=== PATIENT | female | born 1955 | race Caucasian/White ===

== ENCOUNTER 2023-06-24 11:39 | Outpatient (CLI) | payer MEDICARE, SELFPAY ==
--- NOTE | ~2023-06-24 | XR_ITS ---
EXAMINATION: XR abdomen/kub 1V DATE: 06/24/2023 12:14 INDICATION: Irritable bowel syndrome without diarrhea. TECHNIQUE: A supine view of the abdomen was obtained. COMPARISON: None. FINDINGS: There are no dilated loops of bowel. There is a small volume of stool in the colon. Calcifi cations in the pelvis are likely phleboliths. IMPRESSION: 1. Normal bowel gas pattern. Reviewed, dictated and finalized at location E.
[2023-06-24 19:29] LABS: Iron 160 ug/dL (37-170)
[2023-06-24 19:39] LABS: Percent Iron Saturation 43 % (20-50)
[2023-06-24 20:02] LABS: Vitamin D 25 Hydroxy 42.6 ng/mL
[2023-06-24 20:33] LABS: Hemoglobin A1C 5.5 % (<5.7)
== END 2023-06-24 11:40 | disposition home or self-care (01) ==
PROVIDERS: PCP Family Medicine; Visit Provider Family Medicine
DX: R73.09 Other abnormal glucose (principal); G25.81 Restless legs syndrome; R00.2 Palpitations; K58.9 Irritable bowel syndrome, unspecified
CPT/HCPCS: 36415; 74018; 82306; 82607; 83036; 83540; 83550

== ENCOUNTER 2023-06-26 14:07 | Outpatient (CLI) | payer MEDICARE, SELFPAY ==
[2023-07-05 19:23] LABS: Pancreatic Elastase, Stool >500 mcg/g
== END 2023-06-26 14:08 | disposition home or self-care (01) ==
LOC: ANHBWCLAB 14:09
PROVIDERS: PCP Family Medicine; Visit Provider Family Medicine
DX: Z00.00 Encounter for general adult medical examination without abnormal findings (principal); K58.9 Irritable bowel syndrome, unspecified; I10 Essential (primary) hypertension
CPT/HCPCS: 82653

== ENCOUNTER 2023-10-22 13:35 | Outpatient (CLI) | payer MEDICARE, SELFPAY ==
[2023-10-22 14:27] LABS: Influenza A QL RT-PCR Negative (Negative); Influenza B QL RT-PCR Negative (Negative); RSV RNA, RT-PCR Negative (Negative); SARS-CoV-2 RNA PCR Positive (Negative)
== END 2023-10-22 13:36 | disposition home or self-care (01) ==
LOC: ANHLAB 13:37
PROVIDERS: PCP Family Medicine; Visit Provider Family Medicine
DX: U07.1 COVID-19 (principal)
CPT/HCPCS: 87637

== ENCOUNTER 2024-01-23 08:04 | Day surgery (SDC) | payer MEDICARE, SELFPAY ==
[2023-10-25 11:30] VITALS: BMI 32.4
[2023-11-27 15:03] VITALS: BMI 31.1
[2023-12-23 08:18] VITALS: BMI 31.3
[2024-01-23 09:35] VITALS: BP 147/74; PULSE 58; RESP 18; TEMP 36.2; O2SAT 97; BMI 31.3
[2024-01-23] MEDS: LACTATED RINGERS 1,000 ML 150 ML IV CONT (09:48)
--- NOTE | 2024-01-23 09:48 | P.HP_ITS ---
History of Present Illness History of Present Illness Consent: Risks, benefits, and alternatives have been discussed and questions answered. Patient agrees to proceed with procedure. Chief complaint: Neoplasm screening Narrative: Chiquita Nino is a 68 year old female presents for screening colonoscopy. Patient reports having had a colon polyp 5 years ago at previous colonoscopy in [place]. Brother has had colon polyps. Patient reports that her own weight ap petite and bowel movements are normal. Patient denies abdominal pain. She has had no bleeding. Review of Systems Review of Systems: All systems reviewed & are unremarkable except as noted in HPI and below PMFSH Past Medical History Medical History (Updated 10/22/23 @ 13:20 by Enoch Tavares MD) URI (upper respiratory infection) Family History Family History Father History of kidney cancer Hypertension Mother Hypertension Sibling Hypertension Social History Social History Smoking status: Never smoker Alcohol intake: current Drinks per week: 10 Alcohol use details: social Substance use: never Substance use type: does not use Lack of Transportation: No Lack of Food: Never True Current Housing: I Have Housing Concerned About Future Housing: No Difficulty Paying Gas/Electric Bills: No Difficulty Paying for Meds: No Currently Unemployed: No Education: High School Diploma/GED Living arrangements: with family Occupation/Education: occupation Gender identity (if verbalized by the patient): Female Spiritual care concerns: No Meds Home Medications and Allergies Home Medications Medication Instructions Recorded Confirmed Type amlodipine 5 mg tablet 5 mg PO DAILY 06/13/23 01/23/24 History pravastatin 20 mg tablet 20 mg PO DAILY 06/13/23 01/23/24 History mecobalamin (vitamin B12) 2,500 2,500 mcg PO DAILY 01/23/24 01/23/24 History mcg chewable tablet Allergies Allergy/AdvReac Type Severity Reaction Status Date / Time No Known Allergies Allergy Verified 01/23/24 09:27 Vital Signs Vital Signs - 24 hr 01/23/24 09:35 Temperature 97.1 F L Pulse Rate 58 L Respiratory Rate 18 Blood Pressure 147/74 H Pulse Oximetry 97 Oxygen Delivery Room Air Exam Narrative: Physical exam reveals patent signs stable. HEENT exam is unremarkable. Patient is anicteric. Lungs are clear to auscultation and percussion. Heart is without murmur or extra sounds. Abdomen bowel sounds are present soft nontender with no organomegaly. Digital external rectal exam is normal. Assessment and Plan Assessment and plan (1) Colon cancer screening: Code(s): Z12.11 - Encounter for screening for malignant neoplasm of colon Status: Acute Assessment and Plan: Patient presents today for screening colonoscopy. Her brother has had colon polyps. She reports having had previous polyps insert type elsewhere 5 years ago. Further recommendations may be given after endoscopy.
--- NOTE | 2024-01-23 09:56 | P.PNAN_ITS ---
Anes - Initial Pre Proc Eval Procedure: Operation Date: 01/23/24 10:30 Proposed Procedures p Colonoscopy - Kamran Cunningham MD Date/Time: 01/23/24 09:56 Surgeon: Kamran Cunningham MD Pre Op Diagnosis: Neoplasm screening Patient Data Age: 68 Gender: F Height: 1.52 m Weight: 72.7 kg Last Vital Signs Temp 36.2 C L 01/23/24 09:35 Pulse 58 L 01/23/24 09:35 Resp 18 01/23/24 09:35 BP 147/74 H 01/23/24 09:35 Pulse Ox 97 01/23/24 09:35 O2 Del Method Room Air 01/23/24 09:35 Allergies Allergy/AdvReac Type Severity Reaction Status Date / Time No Known Allergies Allergy Verified 01/23/24 09:27 Home Medications Medication Instructions Recorded Confirmed Type amlodipine 5 mg tablet 5 mg PO DAILY 06/13/23 01/23/24 History pravastatin 20 mg tablet 20 mg PO DAILY 06/13/23 01/23/24 History mecobalamin (vitamin B12) 2,500 2,500 mcg PO DAILY 01/23/24 01/23/24 History mcg chewable tablet Patient hx anesthesia problems: none Family hx anesthesia problems: none Results Review: All pre-operative results and documents have been reviewed as part of the pre- operative evaluation. [facility] Past Medical History Medical History URI (upper respiratory infection) Family History Family History Father History of kidney cancer Hypertension Mother Hypertension Sibling Hypertension Social History Social History Smoking status: Never smoker Alcohol intake: current Drinks per week: 10 Alcohol use details: social Substance use: never Substance use type: does not use Lack of Transportation: No Lack of Food: Never True Current Housing: I Have Housing Concerned About Future Housing: No Difficulty Paying Gas/Electric Bills: No Difficulty Paying for Meds: No Currently Unemployed: No Education: High School Diploma/GED Living arrangements: with family Occupation/Education: occupation Gender identity (if verbalized by the patient): Female Spiritual care concerns: No Anes - Eval Final PreProcedure Day of Procedure 01/23/24 09:56 Patient weight: obese Heart: regular rate and rhythm Lungs: clear to auscultation Airway: Mallampati scale class II Neurological: alert and oriented Last oral intake: >/= 8 hours ASA classification: II Emergent: no Anesthetic plan: proceed Anesthesia type and monitoring: general GIVS and standard monitoring Results Review: All pre-operative results and documents have been reviewed as part of the pre- operative evaluation. Informed Consent: The patient's anesthetic plan and its attendant risks and benefits were discussed with the patient/family/POA. Questions were solicited and answers provided to the satisfaction of the patient/family/POA.
[2024-01-23 10:44] VITALS: BP 125/76; PULSE 61; RESP 14; O2SAT 97
[2024-01-23 10:54] VITALS: BP 117/71; PULSE 57; RESP 16; O2SAT 97
--- NOTE | 2024-01-23 10:56 | WPDANESPN ---
Anes - Prog Note Post-Op Date/Time: 01/23/24 10:56 Cardiovascular status: normal Respiratory status: normal Airway patency: baseline Mental status: baseline Post-Op hydration status: normal Vital Signs: Last Vital Signs Temp 36.2 C L 01/23/24 09:35 Pulse 57 L 01/23/24 10:54 Resp 16 01/23/24 10:54 BP 117/71 01/23/24 10:54 Pulse Ox 97 01/23/24 10:54 O2 Del Method Room Air 01/23/24 10:54 Pain Score (VAS): 0 I/O: Intake & Output 01/22/24 01/23/24 01/23/24 23:59 07:59 15:59 Intake Total 325 Balance 325 Patient Feedback: Patient satisfied with anesthetic care.
[2024-01-23 11:04] VITALS: BP 123/65; PULSE 57; RESP 16; O2SAT 100
== END 2024-01-23 11:11 | disposition home or self-care (01) ==
PROVIDERS: PCP Family Medicine; Visit Provider Internal Medicine Gastroenterology
PROC: 0DJD8ZZ Inspection of Lower Intestinal Tract, Via Natural or Artificial Opening Endoscopic (ICD-10-PCS; CPT 45378; principal; 2024-01-23 10:30)
DX: Z86.010 Personal history of colon polyps (principal); K57.30 Diverticulosis of large intestine without perforation or abscess without bleeding; K64.8 Other hemorrhoids
CPT/HCPCS: 45378

== ENCOUNTER 2025-01-07 14:02 | Outpatient (CLI) | payer MEDICARE, SELFPAY ==
--- NOTE | ~2025-01-07 | XR_ITS ---
3 VIEWS LUMBAR SPINE Ordering provider: Enoch Tavares MD History: . chronic lower back pain . Comparison: None. FINDINGS: VERTEBRAL BODIES: No visible fracture or subluxation. Degenerative changes of the spine. DISK SPACES: Narrowing of all the disc spaces. Facet joint disease at the level of L4-L5 and L5-S1. SOFT TISSUES: Normal. IMPRESSION: No acute osseous abnormality lumbar spine. Multilevel degenerative disc disease. Reviewed, dictated and finalized at location A.
--- OUTSIDE RECORDS SUMMARY | 2025-01-07 14:51 | XMS_ITS | Encounter Summary ---
Author Organization [facility] Healthcare Address [address] [place] [address] Care Team Providers Care Director Check Name Role Phone Karen Hough DO Primary Care Provider [phone] Lucho Delvalle MD Primary Care Provider [phone] Karen Hough DO Primary Care Provider [phone] Enoch Tavares MD Primary Care Provider [phone] Reason for Visit * Reason Onset Date Comments Scheduling Appointments 11/13/2021 Jeramye d dexa Encounter Details Date Type Department Care Team (Late st Contact Info) Description 11/13/2021 Telephone [facility] [address] [place] [address] Chiqui Salcido, Scheduling Appointments (Confirmed dexa ) Social History Tobacco Use Types Packs/Day Years Used Date Smoking Tobacco: Never Smokeless Tobacco: Never Alcohol Use Standard Drinks/Week Comments Yes 1 (1 standard drink = 0.6 oz pur e alcohol) 6 drinks weekends only Overall Financial Resource Strain (CARDIA) Answe r Date Recorded How hard is it for you to pa y for the very basics like food, housing, medical care, and heating? Not very hard 09/27/2020 PHQ-2 Answer Date Recorded PHQ-2 Total Score (If total score is 3 or more points, staff should administer the PHQ-9) 0 10/19/2021 Hunger Vital Sign Answer Date Recorded Within the past 12 months, y ou worried that your food would run out before you got the money to buy more. Never true 09/27/19 21 Within the past 12 months, t he food you bought just didn't last and you didn't have money to get more. Never true 09/27/2020 PRAPARE - Transportation Answer Date Re corded In the past 12 months, has l ack of transportation kept you from medical appointments or from getting medications? No 09/09 In the past 12 months, has l ack of transportation kept you from meetings, work, or from getting things needed for daily living? 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
--- OUTSIDE RECORDS SUMMARY | 2025-01-07 14:52 | XMS_ITS | Clinical Summary ---
Author Organization [facility] A Address [address] [place] [address] Care Team Providers Care Cardiovascular Tech Name Role Phone Enoch Tavares MD Primary Care Provider [phone] Allergies No known active allergies Medications ketoconazole (NIZORAL) 2 % shampoo 09/26/19 23 Active ciclopirox 1 % shampoo LATHER ON SCALP, LET SIT FOR 3-5 MINUTES, THEN RINSE WASH 3 TIMES A WEEK 01/17/20 23 Active fluocinolone (DERMA-SMOOTHE) 0.01 % external oil APPLY TO THE AFFECTED AREA ON THE SCALP TWICE A DAY 05/15/20 23 Active tretinoin (RETIN-A) 0.025 % cream APPLY A PEA SIZED AMOUNT TO THE FACE 3 NIGHTS PER WEEK, THEN INCREASE TO EVERY NIGHT TOLERATED 03/14/20 23 Active amLODIPine (NORVASC) 5 mg tabletIndications:Prima ry hypertension Take 1 tablet (5 mg total) by mouth nightly 90 tablet 3 05/22/20 23 Active pravastatin (PRAVACHOL) 20 mg tabletIndications:Pure hypercholesterolemia Take 1 tablet (20 mg total) by mouth nightly 90 tablet 3 05/22/20 23 Active Active Problems Problem Noted Date Diagnosed Date Bulging of lumbar intervertebral disc 02/07/2023 Assessment & Plan (02/07/2023 4:00 PM CDT): Chronic history of low back pain. Review previous MRI. Generalized abdominal pain 02/07/2023 Assessment & Plan (02/07/2023 4:00 PM CDT): X-rays ordered, labs ordered, will follow. For severe abdominal pain go to nearest emergency room for further evaluation and management. Acute bilateral low back pain without sciatica 0 02/07/2023 Assessment & Plan (02/07/2023 3:59 PM CDT): History of bulging disc, consider adding [id number] NSAID of choice. Use as directed on bottle. Herpes zoster without complication 02/07/2023 Assessment & Plan (02/07/2023 3:59 PM CDT): Prescription sent, may use ztib-pef-wlrxfrt anti-itch cream and/or antihistamines as needed for itching. Bacteria in urine 02/07/2023 Assessment & Plan (02/07/2023 3:58 PM CDT): Urine culture ordered. Primary hypertension 10/19/2021 Assessment & Plan (05/22/2023 8:06 PM CDT): Blood pressure at goal less than 140/90, continue current prescription medications, amlodipine. Assessment & Plan (10/25/2022 10:22 AM SPECIALTIES OPERATOR): Blood pressure at goal less than 140/90, d/c Maxzide. Continue amlodipine. Record daily bp measurements at home, send bp log in one week via [place]. Assessment & Plan (10/11/2022 11:24 AM SPECIALTIES OPERATOR): BP Readings from Last 3 Encounters: 10/11/22 102/68 04/23/22 108/72 10/19/21 102/68 Vitals BP 102/68 (BP Location: Left arm, Patient Position: Sitting) Pulse 75 Resp 18 Ht 155.7 cm (5' 1.3 ) Wt 73.5 kg (162 lb) LMP 09/09/2007 (Approximate) SpO2 96% BMI 30.31 kg/m Lab Results Component Value Date POTASSIUM 3.9 04/23/2022 bp at goal - would recommend decreasing her hctz at this time otherwise continue triamterene 37.5/25 hctz,norvac 5 and follow up with pcp Assessment & Plan (04/23/2022 9:03 AM CDT): Blood pressure at goal less than 140/90, continue current prescription medications. Assessment & Plan (10/19/2021 8:20 AM SPECIALTIES OPERATOR): Stable. Cont. Current prescription medications. Pure hypercholesterolemia 10/19/2021 Assessment & Plan (05/22/2023 8:07 PM CDT): LDL not at goal of < 100, low chol diet recommended. Consider a medication adjustment, once labs have been reviewed. Assessment & Plan (10/25/2022 10:22 AM SPECIALTIES OPERATOR): LDL near goal of < 100, continue pravastatin. Low chol diet recommended, labs ordered. Assessment & Plan (04/23/2022 9:02 AM CDT): LDL not yet at goal of less than 100. Low-cholesterol diet recommended. Labs ordered, will follow. Assessment & Plan (10/19/2021 8:20 AM SPECIALTIES OPERATOR): LDL not at goal of less than 100. Increase pravastatin 10 mg nightly up to 20 mg nightly. Low-cholesterol diet recommended. Gastroesophageal reflux disease without esophagi tis 10/19/2021 Assessment & Plan (04/23/2022 9:02 AM CDT): Stable. Cont. Current prescription medications. Assessment & Plan (10/19/2021 8:20 AM SPECIALTIES OPERATOR): Asymptomatic. Stable. Continue current prescription medications. Tinnitus of both ears 10/19/2021 Bilateral hearing loss 04/10/2021 Assessment & Plan (04/10/2021 4:31 PM CDT): Hearing test and Balance testing - [facility] A Few Causes of Ringing in Your Ears (Tinnitus) discussed and Handout provided Hx of colonic polyps 05/23/2018 Overview (05/23/2018): Added automatically from request for surgery [id number] Family hx colonic polyps 05/23/2018 Overview (05/23/2018): Added automatically from request for surgery [id number] Body mass index (BMI) of 29.0 to 29.9 in adult 1 Assessment & Plan (07/03/2017 11:39 AM CDT): Recommended patient to continue to increase heart healthy diet with adequate fruits, vegetables, and plenty of water along with mild-moderate daily exercise as tolerated. Lumbar disc disease with radiculopathy 7 Assessment & Plan (07/03/2017 11:39 AM CDT): Recommended continuing therapy exercises along with coordinating care with pain management for injections. Certainly the interim will do of we can for her pain alleviation. MRI did not indicate the need to see a spinal surgeon at this point time I did educate her that if conservative management is not effective, we can consider referral to spinal surgeon to see if there is any operative options. Considering asymptomatic since presentation in office today advised her to continue with which he is currently doing and we released her back to work as of Saturday. Abnormal ANCA test 05/17/2017 Neurosensory deficit 02/26/2017 Overview (10/19/2021): LLE IBS (irritable bowel syndrome) 01/10/2009 Assessment & Plan (02/07/2023 4:00 PM CDT): History of IBS, documented chart since 2008. Encouraged patient to follow-up with gastroenterology. Resolved Problems Problem Noted Date Diagnosed Date Resolved Date Near syncope 04/16/2022 10/25/2022 Dizziness and giddiness 04/10/2021 02/ Assessment & Plan (04/10/2021 1:32 PM CDT): Hearing test and Balance testing - [facility] Acute cystitis with hematuria 03/31/2019 03/31/2019 Assessment & Plan (03/31/2019 4:14 PM CDT): Clinical examination correlates with acute cystitis. Given recent antibiotic course of cephalexin, recommending Bactrim DS b.i.d. X7 days along with increasing fluids, cranberry pills or tablets, Pyridium for p.r.n. Use in the interim, OTC antipyretics, and supportive measures also encouraged in office. Will follow-up in regard to urine culture and sensitivity indicating need for changes in management. RTC p.r.n. Regarding condition. Tibial pain 03/23/2019 09/24/2019 Assessment & Plan (03/31/2019 4:13 PM CDT): Residual left tibial pain, likely secondary to MS injury (possibly to surrounding tendons) I did advised Pt to move forward with MRI of left tibia further evaluation given persistent pain and swelling. Further recommendations pending results of testing. Assessment & Plan (03/23/2019 4:39 PM CDT): Given x-ray and ultrasound were both negative, detailed above, with swelling and pain noted, DDx includes stress fracture of tibia verses tendon injury. MRI ordered to schedule next week upon returning back from [place] trip to look further into these abnormalities if in the event pain persist. Certainly she was advised also Cnt. With the cephalexin naproxen, weight/activity limitations, and bracing as prior advised. She was advised to call next week updating us on her condition was returning back from trip, further recommendations pending results of MRI if still indicated in 1wk Cellulitis of left leg 03/23/201903/31 Assessment & Plan (03/23/2019 4:35 PM CDT): Secondary to trauma. Mild improvment w/ Keflex with less redness, pain. Cnt. With cleansing precautions as prior noted.RTC next week over the phone once returning from [place]. Left leg pain 03/18/2019 09/24/2019 Assessment & Plan (03/18/2019 11:38 AM CDT): DDx include: tibial fracture or traumatic contusion, DVT, or cellulitis secondary to trauma. Recommending x-ray of left tibia, hold and call left LE duplex to rule out concerns of DVT, and further recommendations pending results of testing. I did advise her to F/U here in the office in 5 days for re-evaluation. If all testing negative, recommending RICE therapy, naproxen 500 mg q.8 hours, ice 20 minutes an hour, activity and weight-bearing restrictions. Will be addressed in office in 5 days to see if treatment for cellulitis is indicated with persistent pain, redness or warmth to touch Back pain 06/26/2017 09/24/2019 UTI (urinary tract infection) 02/26/2017 10/19/2021 Screening for condition 01/10/200910/10 Overview (10/19/2021): Adult Abstraction Problem List Screening Colonoscopy: Result: 04/13 Cholesterol 07/16 Immunizations Immunization Administration Dates Next Due DT 05/07/2005 Influenza, Quad, Adjuvantate d, Intramuscular 06/18/2022,06/12/2021,06/08/2020 Influenza, Quadrivalent, Spl it, Intramuscular 07/20/2015 Influenza, Quadrivalent, Spl it, Preservative Free, Intradermal 05/28/2016 Influenza, Quadrivalent, Spl it, Preservative Free, Intramuscular 07/03/2017 Influenza, Trivalent, Recomb inant, Egg Free, Preservative Free, Antibiotic Free, IM (FLUBLOK) 07/09/2014,07/09/2014 Influenza, Unspecified 06/21/2019,07/04/2018 Moderna SARS-CoV-2 Monovalen t Vaccination (12+ YRS) 11/15/2020,10/13/2020 Pneumococcal Conjugate Pcv20 04/23/2022 Pneumococcal Polysaccharide PPV23 08/13/2012 ZOSTER LIVE 07/20/2015,06/18/2015 ZOSTER Recombinant 09/26/2018,07/04/2018 Surgical History Surgery Date Site/Laterality Comments CARPAL TUNNEL RELEASE Carpal tunnel release OTHER SURGICAL HISTORY Menorrhagia: D&C COLONOSCOPY 09/28/2012 Medical History Medical History Date Comments Hx Other Medical Menorrhagia; Co mments: RED 11/15/2014 - Irritable bowel syndrome Family History Medical History Relation Name Comments Other Father Prakash Cancer, unknown primary; Cause of : Cancer, unknown primary Bone cancer Maternal Grandmother Cancer, bone; Cause of : Cancer, bone Hypertension Mother Sandra Hypertension; Other Other No family histo ry of breast cancer; Breast cancer Neg Hx Ovarian cancer Neg Hx Thyroid cancer Neg Hx Relation Name Status Comments Father Prakash (Age 82) Maternal Grandmother Mother Sandra Alive Other Social History Tobacco Use Types Packs/Day Years Used Date Smoking Tobacco: Never Smokeless Tobacco: Never Tobacco Cessation:Counseling Given: Not Answered Alcohol Use Standard Drinks/Week Comments Yes 1 [...] points, staff should administer the PHQ-9) 0 05/22/2023 Hunger Vital Sign Answer Date Recorded Within [...] on file Legal Sex Female 11:59 AM SPECIALTIES OPERATOR Gender Identity Not on file Sexual Orientation Not on file 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 Not on file Not on file Obstetrics History Para Term AB IAB SAB Ectopic Multiple Livin g Live Births 4 3 3 0 1 3 Date Outcome GA Total Labor Labor/2nd/3rd Weight Sex Type Anes PTL Julia A1 A5 Name Clin Term Term Term AB Last Filed Vital Signs Vital Sign Reading Time Taken Comments Blood Pressure 116/78 05/22/2023 12:40 PM CDT Pulse 60 05/22/2023 12:40 PM CDT Temperature 37.4 C (99.4 F) 05/22/2023 12:40 PM CDT Respiratory Rate 18 05/22/2023 12:4 0 PM CDT Oxygen Saturation 96% 05/22/2023 12: 40 PM CDT Inhaled Oxygen Concentration - - Weight 72.5 kg (159 lb 12.8 oz) 023 12:40 PM CDT Height 155.7 cm (5' 1.3 ) 05/22/2023 12 :40 PM CDT Body Mass Index 29.9 05/22/2023 12:40 PM CDT Plan of Treatment Health Maintenance Due Date Last Done Comments Hepatitis B Screening 1973 DTaP/Tdap/Td Vaccine (2 - Tdap) 05/07/2015 5 Breast Cancer Screening-Mammogram 05/24/2023 05/24/2022, 01/26/2021, 08/02/2018, Additional history exists Colon Cancer Screening-Colonoscopy 08/11/2023 08/11/2018, 10/06/2012 Well Visit 65+ 10/25/2023 10/25/2022, 10/10, 03/31/2021, Additional history exists Osteoporosis Screening-Bone Density Scan 11/15/2023 11/14/2021, 07/06/2017, 06/06/2017, Additional history exists Covid-19 Vaccine (2023-2 5 season) 2024 07/10/2021, 11/15/2020, 10/13/2020 Influenza Vaccine (#1) 2024 , 06/12/2021, 06/08/2020, Additional history exists Depression Screening 05/22/2024 05/22/2023, 02/07/2023, 10/25/2022, Additional history exists Fall Risk Assessment 05/22/2024 05/22/2023, 02/07/2023, 10/25/2022, Additional history exists Colon Cancer Screening-CT Colonography Discontinued 08/11/2018, 10/06/2012 Colon Cancer Screening-DNA Stool Discontinued 08/11/20 18, 10/06/2012 Colon Cancer Screening-FIT Discontinued 08/11/2018, Colon Cancer Screening-Sigmoidoscopy Discontinued 08/11/2018, 10/06/2012 Zoster Vaccine Completed 09/26/2018, 06/10, 07/20/2015, Additional history exists Hepatitis C Screening Completed 11/14/2021 Pneumococcal vaccine 65+ Completed 04/23/2022, 01/2012 Procedures Procedure Name Priority Date/Time Associated Diagnosis Comments SCREENING MAMMOGRAM BILATERAL W TED Schedule Routine, Read Routine (OP Routine) 05/24/2022 10:21 AM CDT Screening mammogram for breast cancer DEXA AXIAL SKELETON BONE DENSITY 1 OR MORE SITES Schedule Routine, Read Routine (OP Routine) 11/14/2021 11:36 AM SPECIALTIES OPERATOR Screening for osteoporosis Postmenopausal HEPATITIS C ANTIBODY Routine 11/14/2021 7:41 AM SPECIALTIES OPERATOR Encounter for hepatitis C screening test for low risk patient COLONOSCOPY 08/11/2018 9:26 AM SPECIALTIES OPERATOR from Last 3 Months or Most Recently Relevant to Health Maintenance Results * Screening Mammogram Bilateral W Ted (05/24/2022 10:21 AM CDT) Anatomical Region Laterality Modality Breast Bilateral Mammography 05/24/2022 1:28 PM CDT Impressions 05/24/2022 1:28 PM CDT There is no mammographic evidence of malignancy. A 1 year screening mammogram is recommended. BI-RADS: 1 - Negative. The patient has been or will be contacted. The patient will be entered into a reminder system with a target due date of 1 year for her next mammogram. Electronically signed by: Fran Nur M.D. Narrative 05/24/2022 1:28 PM CDT EXAMINATION: SCREENING MAMMOGRAM BILATERAL W TED ORDERING HEALTHCARE PROVIDER: SHAHAB FITZPATRICK HISTORY: Routine screening mammography. COMPARISON: 01/26/2021, 08/02/2018, 08/11/2016, 05/30/2015 TECHNIQUE: CC and MLO views of the bilateral breasts were obtained with digital technique using breast tomosynthesis with C view. Computer aided detection was utilized. FINDINGS: DENSITY: There are scattered fibroglandular elements in the bilateral breasts. BREASTS: There are no suspicious masses, suspicious calcifications, or other suspicious findings in either breast. There has been no suspicious interval change. us Shahab Luna Gianluca DO IMG MAMMO PROCEDURES Final Result * Dexa Axial Skeleton Bone Density 1 or 2 Site (11/14/2021 11:36 AM SPECIALTIES OPERATOR) Anatomical Region Laterality Modality Body N/A Other 11/14/2021 9:22 PM SPECIALTIES OPERATOR Narrative 11/14/2021 9:24 PM SPECIALTIES OPERATOR EXAM DESCRIPTION: DEXA AXIAL SKELETON BONE DENSITY 1 OR MORE SITES REASON FOR STUDY: 65 y/o year old F with given history of screening. Health Record Technician/Model: Tonara SL (S/N [id number]) CLINICAL INFORMATION: Current height: 60 inches Maximum height: 60 inches Weight: 158 pounds Risk factors: Postmenopausal COMPARISON: None available. FINDINGS: AP LUMBAR SPINE L1-L4: Total BMD is 0.924 g/cm2 T-score is -1.1 LEFT HIP: Total BMD is 0.876 g/cm2 T-score is -0.5 Femoral neck BMD is 0.703 g/cm2 T-score is -1.3 IMPRESSION: Based on the left femoral neck bone mineral density (T-score -1.3) the patient has low bone mass. Fracture risk assessment (FRAX): 10 year risk for a major osteoporotic fracture is 8.6 % 10 year risk for a hip fracture is 0.8 % The FRAX tool has not been validated in patients currently or previously treated with pharmacotherapy for osteoporosis. In such patients, clinical judgement must be exercised in interpreting FRAX scores as the fracture risk may be overestimated. REFERENCE: Bone mineral density: Normal (T-score above or = -1.0) Low bone mass (T-score between -1.0 and -2.5) replaces the previously used term osteopenia Osteoporosis (T-score = or below -2.5) Medical evaluation for secondary causes of low bone mineral density may be appropriate. FRAX is a World Health Organization validated fracture risk assessment tool that calculates a person's 10 year probability of a major osteoporosis related fracture and hip fracture. According to the National Osteoporosis Foundation guidelines, postmenopausal women and men age 50 or older with low bone mass and a 10 year probability of a major osteoporosis related fracture = or greater than 20% or a 10 year probability of a hip fracture = or greater than 3% should be considered for treatment. For further information, including treatment recommendations, please refer to the 2013 ISCD Official Positions (http://www.iscd.org) and the NOF's Clinician's Guide to Prevention and Treatment of Osteoporosis (http://www.nof.org/professionals/clinical-guidelines) THIS IS AN ELECTRONICALLY VERIFIED FINAL REPORT 11/14/2021 9:24 PM - Electronically signed by Rusty Staton M.D. MF: [email or web address] Report ID: [id number] Reading Location: [place] [address] Procedure Note Rusty Staton MD - 11/14/2021 EXAM DESCRIPTION: DEXA AXIAL SKELETON BONE DENSITY 1 OR MORE SITES REASON FOR STUDY: 65 y/o year old F with given history ofscreening. Health Record Technician/Model: Tonara SL (S/N [id number]) CLINICAL INFORMATION: Current height: 60 inches Maximum height: 60 inches Weight: 158 pounds Risk factors: Postmenopausal COMPARISON: None available. FINDINGS: AP LUMBAR SPINE L1-L4: Total BMD is 0.924 g/cm2 T-score is -1.1 LEFT HIP: Total BMD is 0.876 g/cm2 T-score is -0.5 Femoral neck BMD is 0.703 g/cm2 T-score is -1.3 IMPRESSION: Based on the left femoral neck bone mineral density (T-score -1.3) the patient has low bone mass. Fracture risk assessment (FRAX): 10 year risk for a major osteoporotic fracture is 8.6 % 10 year risk for a hip fracture is 0.8 % The FRAX tool has not been validated in patients currently or previously treated with pharmacotherapy for osteoporosis. In such patients, clinical judgement must be exercised in interpreting FRAX scores as the fracturerisk may be overestimated. REFERENCE: Bone mineral density: Normal (T-score above or = -1.0) Low bone mass (T-score between -1.0 and -2.5) replaces thepreviously used term osteopenia Osteoporosis (T-score = or below -2.5) Medical evaluation for secondary causes of low bone mineral density may be appropriate. FRAX is a World Health Organization validated fracture risk assessmenttool that calculates a person's 10 year probability of a major osteoporosisrelated fracture and hip fracture. According to the National OsteoporosisFoundation guidelines, postmenopausal women and men age 50 or older with low bonemass and a 10 year probability of a major osteoporosis related fracture = or greater than 20% or a 10 year probability of a hip fracture = or greaterthan 3% should be considered for treatment. For further information, including treatment recommendations, please referto the 2013 ISCD Official Positions (http://www.iscd.org) and the NOF's Clinician's Guide to Prevention and Treatment of Osteoporosis (http://www.nof.org/professionals/clinical-guidelines) THIS IS AN ELECTRONICALLY VERIFIED FINAL REPORT 11/14/2021 9:24 PM - Electronically signed by Rusty Staton M.D. MF: [email or web address] Report ID: [id number] Reading Location: [place] [address] us Shahab Fitzpatrick DO IMG DXA PROCEDURES Final R esult * Hepatitis C antibody (11/14/2021 7:41 AM SPECIALTIES OPERATOR) Pathologist [facility] Hep C Ab Nonreactive Nonreactive [facility] [facility] Comment: Interpretive Data Nonreactive: Antibodies to HCV not detected. Does NOT exclude the possibility of recent exposure to HCV. Equivocal: Equivocal for HCV antibodies. Supplemental molecular testing will be automatically performed to determine infection status in accordance with current CDC screening recommendations. Reactive: Positive for HCV antibodies. This may represent current or past HCV infection. Supplemental molecular testing will be automatically performed to determine current infection status in accordance with current CDC screening recommendations. Interpretive data was last revised on 2019. Testing performed by: [facility], [address] [place] [address], [place]., [address] Blood 11/14/2021 7:41 AM SPECIALTIES OPERATOR 11/14/2021 2:40 PM SPECIALTIES OPERATOR us Shahab Fitzpatrick DO LAB MICROBIOLOGY - GENERAL ORDERABLES Final Result [facility] [place] [address] [employer] [place] [address] * COLONOSCOPY (08/11/2018 9:26 AM SPECIALTIES OPERATOR) Anatomical Region Laterality Modality Other Narrative Procedure Note Tien Bonner MD - 08/11/2018 9:26 AM CST [facility] Patient Name: Chiquita Shell Procedure Date: 08/11/2018 9:26 AM Date of : 1955 Admit Type: Outpatient Age: 62 Gender: Female Attending MD: Tien Bonner M.D. Room: [facility] Note Status: Finalized Procedure: Colonoscopy Indications: High risk colon cancer surveillance: Personalhistory of colonic polyps, Last colonoscopy: September 2012 Referring MD: Lucho Delvalle MD Providers: Tien Bonner M.D. Impression: - Hemorrhoids found on perianal exam. - The entire examined colon is normal. - The entire examined colon is normal. - No specimens collected. Recommendation: - Discharge patient to home. - Resume previous diet. - Continue present medications. . - Repeat colonoscopy in 5 years for surveillance. - Return to primary care physician as previously scheduled. Medicines: Propofol per Anesthesia Complications: No immediate complications. Estimated Blood Loss: Estimated blood loss: none. Procedure: The benefits, risks and alternatives of theprocedure and sedation were discussed and informed consent was obtained. All questions were answered. Please referto the signed informed consent document in the medical record. The scope was passed under direct vision.The Colonoscope [id number] was introducedthrough the anus and advanced to the the cecum, identifiedby appendiceal orifice and ileocecal valve. The colonoscopy was performed without difficulty. The patient tolerated the procedure well. The quality of the bowel preparation was good. Findings: Hemorrhoids were found on perianal exam. The colon (entire examined portion) appeared normal. The colon (entire examined portion) appeared normal. Electronically signed by Tien Bonner M.D. Tien Bonner M.D. 08/11/2018 10:04:45 AM Number of Addenda: 0 Note Initiated On: 08/11/2018 9:26 AM Procedure Code(s): --- Professional --- G0105, Colorectal cancer screening; colonoscopy on individual at high risk Diagnosis Code(s): --- Professional --- K64.9, Unspecified hemorrhoids Z86.010, Personal history of colonic polyps CPT copyright 2017 [employer]. All rights reserved. The codes documented in this report are preliminary and upon fish peddler reviewmay be revised to meet current compliance requirements. 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
--- OUTSIDE RECORDS SUMMARY | 2025-01-07 14:52 | XMS_ITS | Clinical Summary ---
Author Organization [facility] Address [address] [place] [address] Care Team Providers Care Tailor Garment Fitter Name Role Phone Eli Sanches MD Unavailable Lucho Delvalle MD Primary Care Provider Unavail able Source Comments [facility],non-owned Affiliates and Associated Physician Practices is amultiple site organization consisting of ambulatory clinics and hospital sitesin [place], [place], [place] and [place]. This disclosure is being madepursuant to the Care Everywhere program and may not contain all information available regarding this patient. Last updated 18.[facility] Allergies No known active allergies Medications * Be aware that medications may not be up to date on this document. Alwaysverify current medications with the patient. zaleplon (SONATA) 10 MG capsuleIndicati ons:Insomnia Take 1 Cap by mouth nightly as needed for Insomnia. 30 Cap 0 3 Active Additional Information Patient not taking.Reported on 06/20/2017 fluconazole (DIFLUCAN) 150 MG tablet Take 1 Tab by mouth ONE TIME. 1 Tab 0 3 Active Additional Information Patient not taking.Reported on 06/20/2017 DULoxetine (CYMBALTA) 30 MG capsule Take 1 capsule by mouth at bedtime 60 capsule 1 7 Active Active Problems Problem Noted Date Diagnosed Date IBS (irritable bowel syndrome) 01/10/2009 Screening for condition 01/10/2009 Overview (06/09/2015): Adult Abstraction Problem List Screening Colonoscopy: Result: 04/13 Cholesterol 07/16 Resolved Problems Problem Noted Date Diagnosed Date Resolved Date Pneumonia due to organism 01/10/2009 Immunizations Immunization Administration Dates Next Due DT 05/07/2005 PNEUMOCOCCAL PPSV23 08/13/2012 Family History Medical History Relation Name Comments Hypertension Mother Relation Name Status Comments Mother Social History Tobacco Use Types Packs/Day Years Used Date Smoking Tobacco: Never Smokeless Tobacco: Never Alcohol Use Standard Drinks/Week Comments Yes 0 (1 standard drink = 0.6 oz pur e alcohol) social beer Comments Unknown Sex and Gender Information Value Date Recorded Sex Assigned at Not on file Legal Sex Female 4:23 AM CONSUMER LOAN UNDERWRITER Gender Identity Not on file Sexual Orientation Not on file Last Filed Vital Signs Vital Sign Reading Time Taken Comments Blood Pressure 138/80 07/16/2017 9:41 AM CONSUMER LOAN UNDERWRITER Pulse 84 07/16/2017 9:41 AM CONSUMER LOAN UNDERWRITER Temperature 36.3 C (97.4 F) 10/06/2012 1:22 PM CONSUMER LOAN UNDERWRITER Respiratory Rate 18 10/06/2012 1:34 PM CONSUMER LOAN UNDERWRITER Oxygen Saturation 93% 10/06/2012 1:34 PM CONSUMER LOAN UNDERWRITER Inhaled Oxygen Concentration - - Weight 70.8 kg (156 lb) 07/16/2017 9:41 AM CONSUMER LOAN UNDERWRITER Height 152.4 cm (5') 07/16/2017 9:41 AM CONSUMER LOAN UNDERWRITER Body Mass Index 30.47 07/16/2017 9:41 AM CONSUMER LOAN UNDERWRITER Plan of Treatment Health Maintenance Due Date Last Done Comments BONE DENSITY TESTING 1955 COLOGUARD (AGES 45-75) - COLON CA SCREENING 1954 CT COLONOGRAPHY - COLON CA SCREENING 1955 FIT - COLON CA SCREENING 1955 FLEX SIG - COLON CA SCREENING 1955 ZOSTER VACCINE (1 of 2) 2004 PNEUMOCOCCAL VACCINE 50+ (2 of 2 - PCV) 08/13/2013 08/13/2012 MAMMOGRAM 08/18/2014 08/18/2012, 07/10, 09/09/2007, Additional history exists DTAP/TDAP/TD VACCINES (2 - Tdap) 05/07/2015 05/07/2005 SCREENING FOR DIABETES 06/20/2017 08/13/2012, 2009 LIPID TESTING 08/13/2017 08/13/2012, 07/26/2010 COLON MONITORING 10/07/2022 10/07/2012 COLONOSCOPY - COLON CA SCREENING 10/07/2022 10/07/2012, 10/06/2012 Colorectal Cancer Screening 10/07/2022 COVID-19 VACCINE ( season) 2024 DEPRESSION SCREENING 09/09/2024 INFLUENZA VACCINE (Season Ended) 2025 07/03/2017, 05/28/2016, 07/09/2014 Respiratory Syncytial Virus (RSV) Vaccine Pt: or over 60 yrs (1 - 1-dose 75+ series) 2029 HEPATITIS C SCREENING Completed 06/20/2017 HEPATITIS B VACCINE Aged Out No longe r eligible based on patient's age to complete this topic HIB VACCINE Aged Out No longer eligi ble based on patient's age to complete this topic HPV VACCINE Aged Out No longer eligi ble based on patient's age to complete this topic MENINGOCOCCAL (Group B) VACCINE SHARED DECISION-MAKING Aged Out No longer eligible based on patient's age to complete this topic MENINGOCOCCAL GROUPS A/C/Y/W VACCINE Aged Out No longer eligible based on patient's age to complete this topic Procedures Procedure Name Priority Date/Time Associated Diagnosis Comments HEPATITIS SCREEN ACUTE Routine 7 10:32 AM CDT Pain in joint, multiple sites ENDOSCOPY, COLON, SCREENING Routine 10/07/2012 8:19 AM CONSUMER LOAN UNDERWRITER MAMMO BILAT SCREENING Routine 08/18/2012 12:28 PM CONSUMER LOAN UNDERWRITER History of screening mammography COMPREHENSIVE METABOLIC PANEL Routine 08/13/2012 9:01 AM CONSUMER LOAN UNDERWRITER Well adult exam Urinary, incontinence, stress female LIPID PROFILE Routine 08/13/2012 9:01 AM CONSUMER LOAN UNDERWRITER Well adult exam Urinary, incontinence, stress female from Last 3 Months or Most Recently Relevant to Health Maintenance Results * HEPATITIS SCREEN ACUTE (06/20/2017 10:32 AM CDT) Hepatitis A Virus Antibody IgM Non Reactive Non Reactive [facility] ACCOUNT BILL Hepatitis B Virus Surface Antigen Non Reactive Non Reactive [facility] ACCOUNT BILL Hepatitis B Core Virus Antibody IgM Non Reactive Non Reactive [facility] ACCOUNT BILL Hepatitis C Antibody Non Reactive Non Reactive [facility] ACCOUNT BILL Comment: Non Reactive - Antibodies to Hepatitis C virus (HCV) were no t detected, result does not exclude early acute HCV infection. Non Reactive - Antibodies to Hepatitis C virus (HCV) were no t detected, result does not exclude early acute HCV infection. Blood BLOOD SPECIMEN / Unknown 06/20/2017 10:32 AM CDT 06/20/2017 Narrative Resulting Agency Comment [facility] [address] [phone] us Eli Sanches MD LAB - CHEMISTRY ORDERABLES Final Result Performing Organization Address City/[facility] Co de Phone Number [facility] ACCOUNT BILL [address] [place] [address] * ENDOSCOPY, COLON, SCREENING (10/07/2012 8:19 AM CONSUMER LOAN UNDERWRITER) Narrative [facility] - 10/07/2012 8:19 AM CONSUMER LOAN UNDERWRITER Procedure Note Peter Boles MD - 10/06/2012 1:20 PM CST Peter Boles MD GI PROCEDURE ORDERABLES Fin al Result Performing Organization Address [facility] Co de Phone Number [facility] [address] * MAMMO SCREENING DIGITAL IMAGE BILAT (08/18/2012 12:28 PM CONSUMER LOAN UNDERWRITER) Anatomical Region Laterality Modality Breast Bilateral Mammography 08/18/2012 1:36 PM CONSUMER LOAN UNDERWRITER Narrative 08/18/2012 1:47 PM CONSUMER LOAN UNDERWRITER DIGITAL BILATERAL SCREENING MAMMOGRAMS WITH CAD CORRELATION DATE: 08/18/2012 PREVIOUS EXAM DATE: 07/24/2010 INDICATION: Screening. TECHNIQUE: Bilateral craniocaudad (CC) and mediolateral oblique (MLO) views. The study was interpreted with the aid of CAD. TECHNOLOGIST: RT Rupa(R)(M). TISSUE DENSITY: Heterogeneously dense FINDINGS: There is a dense fibronodular glandular pattern. Taking into account technical differences in the film, there is no discrete change with the exception of a mildly prominent axillary lymph node. ASSESSMENT: BI-RADS Category 2: Benign finding. RECOMMENDATIONS: Follow-up one year The above findings should be correlated with physical examination. A relatively nonspecific study should not preclude additional evaluation if suspicious findings are present clinically. An [employer] Certified Facility. [facility] Breast Centers utilize Xand as a reminder system to notify patients of their next recommended mammograms. Procedure Note Ondina Larsen MD - 08/18/2012 DIGITAL BILATERAL SCREENING MAMMOGRAMS WITH CAD CORRELATION DATE: 08/18/2012 PREVIOUS EXAM DATE: 07/24/2010 INDICATION: Screening. TECHNIQUE: Bilateral craniocaudad (CC) and mediolateral oblique (MLO) views. The study was interpreted with the aid of CAD. TECHNOLOGIST: RT uRpa(R)(M). TISSUE DENSITY: Heterogeneously dense FINDINGS: There is a dense fibronodular glandular pattern. Taking into account technical differences in the film, there is no discrete change with the exception of a mildly prominent axillary lymph node. ASSESSMENT: BI-RADS Category 2: Benign finding. RECOMMENDATIONS: Follow-up one year The above findings should be correlated with physical examination. A relatively nonspecific study should not preclude additional evaluation if suspicious findings are present clinically. An [employer] Certified Facility. [facility] Breast Centers utilize Xand as a reminder system to notify patients of their next recommended mammograms. Jeaneth Pond MD MAMMO ORDERABLES Final Re sult * (ABNORMAL) COMPREHENSIVE METABOLIC PANEL (08/13/2012 9:01 AM CONSUMER LOAN UNDERWRITER) Glucose 96 65 - 99 mg/dL [facility] ACCOUNT BILL BUN 16 6 - 24 mg/dL [facility] ACCOUNT BILL Creatinine 0.66 0.57 - 1.00 mg/dL [facility] ACCOUNT BILL eGFR by MDRD 98 >59 mL/min/1.7 3 [facility] ACCOUNT BILL eGFR by MDRD 113 >59 mL/min/1.7 3 [facility] ACCOUNT BILL BUN/Creatinine Ratio 24(H) 9 - 23 [facility] ACCOUNT BILL Sodium 141 134 - 144 mmol/L [facility] ACCOUNT BILL Potassium 5.0 3.5 - 5.2 mmol/L [facility] ACCOUNT BILL Chloride 102 97 - 108 mmol/L [facility] ACCOUNT BILL CO2 22 20 - 32 mmol/L [facility] ACCOUNT BILL Calcium 9.8 8.7 - 10.2 mg/dL [facility] ACCOUNT BILL Protein Total 7.1 6.0 - 8.5 g/dL [facility] ACCOUNT BILL Albumin 4.5 3.5 - 5.5 g/dL [facility] ACCOUNT BILL Globulin Total 2.6 1.5 - 4.5 g/dL [facility] ACCOUNT BILL Albumin/Globulin Ratio 1.7 1.1 - 2.5 [facility] ACCOUNT BILL Bilirubin Total 0.3 0.0 - 1.2 mg/dL [facility] ACCOUNT BILL Alkaline Phosphatase 70 25 - 150 IU/L [facility] ACCOUNT BILL AST 16 0 - 40 IU/L [facility] ACCOUNT BILL ALT 19 0 - 32 IU/L [facility] ACCOUNT BILL Blood specimen (specimen) BLOOD SPECIMEN / Unknown 08/13/2012 9:01 AM CONSUMER LOAN UNDERWRITER 08/13/2012 10:53 PM CONSUMER LOAN UNDERWRITER Narrative Resulting Agency Comment [address] [phone] Jeaneth Pond MD LAB - CHEMISTRY ORDERABLE S Final Result [facility] ACCOUNT BILL [address] [place] [address] * (ABNORMAL) LIPID PROFILE (08/13/2012 9:01 AM CONSUMER LOAN UNDERWRITER) Cholesterol 233(H) 100 - 199 mg/dL [facility] ACCOUNT BILL Triglycerides 86 0 - 149 mg/dL [facility] ACCOUNT BILL HDL Cholesterol 58 >39 mg/dL [facility] ACCOUNT BILL Comment: According to ATP-III Guidelines, HDL-C >59 mg/dL is considered a negative risk factor for CHD. VLDL Calculated 17 5 - 40 mg/dL [facility] ACCOUNT BILL LDL Calculated 158(H) 0 - 99 mg/dL [facility] ACCOUNT BILL Blood specimen (specimen) BLOOD SPECIMEN / Unknown 08/13/2012 9:01 AM CONSUMER LOAN UNDERWRITER 08/13/2012 10:53 PM CONSUMER LOAN UNDERWRITER Narrative Resulting Agency Comment [address] [phone] Jeaneth Pond MD LAB - CHEMISTRY ORDERABLE S Final Result [facility] ACCOUNT BILL [address] [place] [address] from Last 3 Months or Most Recently Relevant to Health Maintenance Insurance [employer] Care Teams Tailor Garment Fitter Relationship Specialty [place] [id number] [place] [address] PCP - General Internal Medicine 06/20/17 [place] [id number] [place] [address] Rheumatology 06/20/17
--- OUTSIDE RECORDS SUMMARY | 2025-01-07 14:52 | XMS_ITS | Clinical Summary ---
Author Organization [facility] Address [address] [place] [address] Phone Care Team Providers Care Balance Staff Inspector Name Role Phone Lucho Delvalle MD Primary Care Provider [phone] Allergies No known active allergies Medications ondansetron (ZOFRAN-ODT) 4 MG TABLET DISPERSIBLE Take 1 Tab by mouth every 12 hours as needed. 30 Tab 7 Active polyethylene glycol (GLYCOLAX, MIRALAX) Pack Take 1 Packet by mouth daily as needed for Constipation. Dissolve in 4-8 oz of liquid. 90 Packet 7 Active predniSONE (DELTASONE) 10 MG Tablet Sig 4 tab twice daily x3d, then 4 daily x3d, then 3 daily x3d, then 2 dialy x 3d, then 1 daily x3 d then stop. 54 Tab 7 Active Additional Information Patient not taking.Reported on 07/05/2017 meloxicam (MOBIC) 7.5 MG Tablet Take 1 Tab by mouth 2 times daily as needed for Pain. 60 Tab 3 7 Active Additional Information Patient not taking.Reported on 07/05/2017 gabapentin (NEURONTIN) 300 MG Capsule Take 1 Cap by mouth 3 times daily. 90 Cap 3 7 Active Multivitamin-Min erals Tablet Take 1 Tablet by mouth daily. Active Cyanocobalamin (B-12 PO) Take by mouth daily. Active AMLODIPINE BESYLATE PO Take 5 mg by mouth daily. Active pravastatin (PRAVACHOL) 20 MG Tablet Take 20 mg by mouth daily. Active Active Problems Problem Noted Date Diagnosed Date Abnormal ANCA test 05/17/2017 Neurosensory deficit 02/26/2017 Overview (02/26/2017): LLE UTI (urinary tract infection) 02/26/2017 Encounters Date Type Department Care Team Description 11/16/2024 9:00 AM CDT - 11/16/2024 9:20 AM CDT Surgery [facility] [address] [place] [address] Kristi Hensley MD PhD CATARACT EXTRACTION WITH INTRAOCULAR LENS PLACEMENT, RIGHT EYE 11/16/2024 8:57 AM CDT [facility] [address] [address] [place] [address] Vargas Momin MD 11/16/2024 7:48 AM CDT - 11/16/2024 9:20 AM CDT Hospital Encounter [facility] Preop/Pacu II [address] [place] [address] Kristi Hensley MD PhD Provider, Anesthesiologist Discharge Disposition: Discharged to home or Selfcare 11/16/2024 Travel 11/09/2024 Travel 10/26/2024 8:04 AM STONECUTTER [facility]est[facility] [address] [address] [place] [address] Daryl Sharma, FLOORING SALESPERSON, [employer] 10/26/2024 8:00 AM STONECUTTER - 10/26/2024 8:20 AM STONECUTTER [facility] [address] [place] [address] Kristi Hensley MD PhD CATARACT EXTRACTION WITH INTRAOCULAR LENS PLACEMENT, LEFT EYE 10/26/2024 6:55 AM STONECUTTER - 10/26/2024 8:36 AM STONECUTTER [facility] Preop[facility]Pacu [facility] [address] [place] [address] Kristi Hensley MD PhD Discharge Disposition: Discharged to home or Selfcare 10/26/2024 Travel 10/15/2024 Travel from Last 3 Months Family History Medical History Relation Name Comments Bladder cancer Brother Hypertension Mother Relation Name Status Comments Brother Alive Father (Age 86) Liver or r enal cancer Mother Alive Social History Tobacco Use Types Packs/Day Years Used Date Smoking Tobacco: Never Smokeless Tobacco: Never Tobacco Cessation:Counseling Given: No Alcohol Use Standard Drinks/Week Comments Yes 2 (1 standard drink = 0.6 oz pur e alcohol) Comments No Sex and Gender Information Value Date Recorded Sex Assigned at Not on file Legal Sex Female 11:20 PM CDT Gender Identity Not on file Sexual Orientation Not on file Last Filed Vital Signs Vital Sign Reading Time Taken Comments Blood Pressure 136/70 11/16/2024 9:14 AM CDT Pulse 64 11/16/2024 9:14 AM CDT Temperature 36.3 C (97.4 F) 11/16/2024 9:14 AM CDT Respiratory Rate 15 11/16/2024 9:14 AM CDT Oxygen Saturation 100% 11/16/2024 9:14 AM CDT Inhaled Oxygen Concentration - - Weight 73.9 kg (163 lb) 11/09/2024 9:00 AM STONECUTTER Height 152.4 cm (5') 11/09/2024 9:00 AM STONECUTTER Body Mass Index 31.83 11/09/2024 9:00 AM STONECUTTER Plan of Treatment Health Maintenance Due Date Last Done Comments TdaP Immunization 1955 Cologuard 2004 Immunochemical Fecal Occult Blood 2004 Mammogram 05/24/2023 05/24/2022, 01/08, 08/02/2018, Additional history exists DEXA Bone Density 11/15/2023 11/14/2021, 06/06/2017 SARS-COV-2 Immunization ( season) 2024 07/10/2021, 11/15/2020, 10/13/2020 Colonoscopy 08/11/2028 08/11/2018 Colorectal Cancer Screening 08/11/2028 Respiratory Syncytial Virus (RSV) Immunization (Adult) (1 - 1-dose 75+ series) 2029 08/11/2018 DTaP/Tdap/Td Immunization Discontinued 05/07/2005 Hepatitis C Virus (HCV) Screening Completed 06/20/2017 Zoster Immunization Completed 09/26/2018, 07/04/2018, 07/20/2015, Additional history exists Pneumococcal Immunization (50+ years) Completed 04/23/2022, 08/13/2012 Pneumococcal Immunization Combined Discontinued 04/23/2022, 08/13/2012 Influenza Immunization Completed , 07/02/2023, 06/18/2022, Additional history exists Hepatitis B Immunization Aged Out No longer eligible based on patient's age to complete this topic Meningococcal Immunization (ACWY) Aged Out No longer eligible based on patient's age to complete this topic Rotavirus Immunization Aged Out No lo nger eligible based on patient's age to complete this topic Medical Devices Implanted Type Area Fuel Retrofitting Technician Device Identifier Shelf Expiration Date Model / Serial / Lot Left Lens Implanted:Qty: 1 on 10/26/2024 by Kristi Hensley MD PhD at [facility] Left: Eye [employer] 11/30/2025 DCB0 [id number] / [id number] / [id number] Technis 1-Piece Iol Implanted:Qty: 1 on 11/16/2024 by Kristi Hensley MD PhD at [facility] Right: Eye 09/16/2026 [id number] / [id number] / [id number] Procedures Procedure Name Priority Date/Time Associated Diagnosis Comments EXTCAP RMVL INSERT INTRAOC PROSTH W/ECP 11/16/2024 8:48 AM CDT VISUALLY SIGNIFICANT CATARACT, RIGHT EYE Special Needs 5'0 163LBS LEFT EYE DONE 10/26. HTN EXTCAP INSERT INTROC PROSTH W/ECP 11/16/2024 8:48 AM CDT VISUALLY SIGNIFICANT CATARACT, RIGHT EYE Special Needs 5'0 163LBS LEFT EYE DONE 10/26. HTN PA XCAPSL CTRC RMVL INSJ IO LENS PROSTH W/O ECP 11/16/2024 8:48 AM CDT VISUALLY SIGNIFICANT CATARACT, RIGHT EYE Special Needs 5'0 163LBS LEFT EYE DONE 10/26. HTN REMV CATARACT INTRACAP,INSERT LENS 11/16/2024 8:48 AM CDT VISUALLY SIGNIFICANT CATARACT, RIGHT EYE Special Needs 5'0 163LBS LEFT EYE DONE 10/26. HTN PA XCAPSL CTRC RMVL INSJ IO LENS PROSTH CPLX WO ECP 11/16/2024 8:48 AM CDT VISUALLY SIGNIFICANT CATARACT, RIGHT EYE Special Needs 5'0 163LBS LEFT EYE DONE 10/26. HTN EXTCAP RMVL INSERT INTRAOC PROSTH W/ECP 10/26/2024 8:01 AM STONECUTTER VISUALLY SIGNIFICANT CATARACT, LEFT EYE Special Needs 5'0 160LB HTN EXTCAP INSERT INTROC PROSTH W/ECP 10/26/2024 8:01 AM STONECUTTER VISUALLY SIGNIFICANT CATARACT, LEFT EYE Special Needs 5'0 160LB HTN PA XCAPSL CTRC RMVL INSJ IO LENS PROSTH W/O ECP 10/26/2024 8:01 AM STONECUTTER VISUALLY SIGNIFICANT CATARACT, LEFT EYE Special Needs 5'0 160LB HTN REMV CATARACT INTRACAP,INSERT LENS 10/26/2024 8:01 AM STONECUTTER VISUALLY SIGNIFICANT CATARACT, LEFT EYE Special Needs 5'0 160LB HTN PA XCAPSL CTRC RMVL INSJ IO LENS PROSTH CPLX WO ECP 10/26/2024 8:01 AM STONECUTTER VISUALLY SIGNIFICANT CATARACT, LEFT EYE Special Needs 5'0 160LB HTN from Last 3 Months Insurance MEDICARE C [facility] [place] [address] Advance Directives * Full Code (Latest Code Status on File) Date Activated Date Inactivated Comments 02/26/2017 9:50 AM 03/01/2017 4:37 PM CPR-Full Adi atment: FULL ARREST: Attempt Resuscitation/CPR wit intubation and mechanical ventilation. PRE-ARREST: Use entire range of life support measures to stabilize the patient. Care Teams Balance Staff Inspector Relationship Specialty Start Date End Date Lucho Delvalle MD [address] [place] [address] [address] PCP - General Internal Medicine 02/26/17
--- OUTSIDE RECORDS SUMMARY | 2025-01-07 14:52 | XMS_ITS | Referral Summary ---
Author Organization [facility] Medical Office Building A Address [address] [place] [address] Care Team Providers Care Steel Box Toe Inserter Name Role Phone Enoch Tavares MD Primary Care Provider [phone] [phone] Allergies No known active allergies Medications ketoconazole [...] CDT): History of bulging disc, consider adding kqjd-czm-lfnetot NSAID of choice. Use as directed on bottle. Herpes zoster without complication 02/07/2023 Assessment & Plan (02/07/2023 3:59 PM CDT): Prescription sent, may use bhgo-bvs-euqipou anti-itch cream and/or antihistamines as needed for itching. Bacteria in urine 02/07/2023 Assessment & Plan (02/07/2023 3:58 PM CDT): Urine culture ordered. Primary hypertension 10/19/2021 Assessment & Plan (05/22/2023 8:06 PM CDT): Blood pressure at goal less than 140/90, continue current prescription medications, amlodipine. Assessment & Plan (10/25/2022 10:22 AM JOURNEYMAN MOLDER): Blood pressure at goal less than 140/90, d/c Maxzide. Continue amlodipine. Record daily bp measurements at home, send bp log in one week via [employer]. Assessment & Plan (10/11/2022 11:24 AM JOURNEYMAN MOLDER): BP Readings from Last 3 Encounters: 10/11/22 [...] medications. Assessment & Plan (10/19/2021 8:20 AM JOURNEYMAN MOLDER): Stable. Cont. Current prescription medications. Pure hypercholesterolemia 10/19/2021 Assessment & Plan (05/22/2023 8:07 PM CDT): LDL not at goal of < 100, low chol diet recommended. Consider a medication adjustment, once labs have been reviewed. Assessment & Plan (10/25/2022 10:22 AM JOURNEYMAN MOLDER): LDL near goal of < 100, continue pravastatin. Low chol diet recommended, labs ordered. Assessment & Plan (04/23/2022 9:02 AM CDT): LDL not yet at goal of less than 100. Low-cholesterol diet recommended. Labs ordered, will follow. Assessment & Plan (10/19/2021 8:20 AM JOURNEYMAN MOLDER): LDL not at goal of less than 100. Increase pravastatin 10 mg nightly up to 20 mg nightly. Low-cholesterol diet recommended. Gastroesophageal reflux disease without esophagi tis 10/19/2021 Assessment & Plan (04/23/2022 9:02 AM CDT): Stable. Cont. Current prescription medications. Assessment & Plan (10/19/2021 8:20 AM JOURNEYMAN MOLDER): Asymptomatic. Stable. Continue current prescription medications. Tinnitus of both ears 10/19/2021 Bilateral hearing loss 04/10/2021 Assessment & Plan (04/10/2021 4:31 PM CDT): Hearing test and Balance testing - [facility] A Few Causes of Ringing in Your Ears (Tinnitus) discussed and Handout provided Hx of colonic polyps 05/23/2018 Overview (05/23/2018): Added automatically from request for surgery [id number] Family hx colonic polyps 05/23/2018 Overview (05/23/2018): Added automatically from request for surgery [id number] Body mass index (BMI) of 29.0 to [...] CDT): Hearing test and Balance testing - [facility] Acute cystitis with hematuria 03/31/2019 03/31/2019 [...] schedule next week upon returning back from [place] trip to look further into these abnormalities [...] week over the phone once returning from [place]. 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 Not on file Not on file Last Filed Vital Signs [...] 05/22/2023 12:40 PM CDT Plan of Treatment Not on file Procedures Procedure Name Priority Date/Time Associated Diagnosis Comments SCREENING MAMMOGRAM BILATERAL W TED Schedule Routine, Read Routine (OP Routine) 05/24/2022 10:21 AM CDT Screening mammogram for breast cancer DEXA AXIAL SKELETON BONE DENSITY 1 OR MORE SITES Schedule Routine, Read Routine (OP Routine) 11/14/2021 11:36 AM JOURNEYMAN MOLDER Screening for osteoporosis Postmenopausal HEPATITIS C ANTIBODY Routine 11/14/2021 7:41 AM JOURNEYMAN MOLDER Encounter for hepatitis C screening test for low risk patient COLONOSCOPY 08/11/2018 9:26 AM JOURNEYMAN MOLDER from Last 3 Months or Most Recently [...] BILATERAL W TED ORDERING HEALTHCARE PROVIDER: SHAHAB HOUGH HISTORY: Routine screening mammography. COMPARISON: 01/26/2021, 08/02/2018, [...] been no suspicious interval change. us Shahab Hough DO IMG MAMMO PROCEDURES Final Result * Dexa Axial Skeleton Bone Density 1 or 2 Site (11/14/2021 11:36 AM JOURNEYMAN MOLDER) Anatomical Region Laterality Modality Body N/A Other 11/14/2021 9:22 PM JOURNEYMAN MOLDER Narrative 11/14/2021 9:24 PM JOURNEYMAN MOLDER EXAM DESCRIPTION: DEXA AXIAL SKELETON BONE DENSITY 1 OR MORE SITES REASON FOR STUDY: 65 y/o year old F with given history of screening. Punch Machine Hand/Model: abusix Discovery SL (S/N [id number]) CLINICAL INFORMATION: Current height: 60 inches Maximum [...] Rusty Staton M.D. MF: CLOVIS Report ID: [id number] Reading Location: [address] Note Rusty Staton MD - 11/14/2021 EXAM DESCRIPTION: DEXA AXIAL SKELETON BONE DENSITY 1 OR MORE SITES REASON FOR STUDY: 65 y/o year old F with given history ofscreening. Punch Machine Hand/Model: [employer] SL (S/N [id number]) CLINICAL INFORMATION: Current height: 60 inches Maximum [...] Rusty Staton M.D. MF: CLOVIS Report ID: [id number] Reading Location: [place] [address] us Shahab Hough DO IMG DXA PROCEDURES Final R esult * Hepatitis C antibody (11/14/2021 7:41 AM JOURNEYMAN MOLDER) Hep C Ab Nonreactive Nonreactive PARIS GUILLEN) Comment: Interpretive Data Nonreactive: Antibodies to HCV [...] last revised on 2019. Testing performed by: [facility], [address] [place] [address], [place]., [address] Blood 11/14/2021 7:41 AM JOURNEYMAN MOLDER 11/14/2021 2:40 PM JOURNEYMAN MOLDER us Shahab Hough DO LAB MICROBIOLOGY - GENERAL ORDERABLES Final Result [facility] BARRERA ([place]) [address] [facility] Department [place] [address] * COLONOSCOPY (08/11/2018 9:26 AM JOURNEYMAN MOLDER) Anatomical Region Laterality Modality Other Narrative Procedure Note Tien Bonner MD - 08/11/2018 9:26 AM CST [facility] Patient Name: Chiquita Shell Procedure Date: 08/11/2018 9:26 AM Date of : 1955 Admit Type: Outpatient Age: 62 Gender: Female Attending MD: Tien Bonner M.D. Room: [facility] ENDOSCOPY CAPSULE Note Status: Finalized Procedure: [...] scope was passed under direct vision.The Colonoscope [id number] was introducedthrough the anus and advanced to [...] history of colonic polyps CPT copyright 2017 [employer]. All rights reserved. The codes documented in this report are preliminary and upon welding machine operator reviewmay be revised to meet current compliance requirements. 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:ESBL E.coli urine 03/31/19 03/31/2019 03/31/2019 Insurance [facility] MEDICARE ADVANTAGE COMMERCIAL GENERIC [id number] MEDICARE ADVANTAGE [facility] MEDICARE ADVANTAGE Advance Directives For more information, please contact: [phone] * Full Code (Latest Code Status on File) Date Activated Date Inactivated Comments 08/11/2018 9:10 AM 08/11/2018 12:40 PM * Full Code Date Activated Date Inactivated Comments 08/11/2018 9:10 AM 08/11/2018 9:10 AM Care Teams Steel Box Toe Inserter Relationship Specialty Start Date End Date Enoch Tavares MD PCP - General Family Practice 07/08/23
--- OUTSIDE RECORDS SUMMARY | 2025-01-07 14:52 | XMS_ITS | Encounter Summary ---
Author Organization [facility] Healthcare Address [address] [place] [address] Care Team Providers Care Field Liability Generalist Name Role Phone Lucho Delvalle MD Primary Care Provider Karen Hough DO Primary Care Provider [phone] Lucho Delvalle MD Primary Care Provider [phone] Karen Hough DO Primary Care Provider [phone] Enoch Tavares MD Primary Care Provider [phone] Reason for Visit * Reason Onset Date Comments Scheduling Appointments 01/25/2021 Confirmi ng mammogram appt- no answer Encounter Details Date Type Department Care Team (Late st Contact Info) Description 01/25/2021 Telephone [facility] [address] [place] [id number] Joanie Campbell RT Scheduling Appointments (Confirming mammogram appt- no answer ) Social History Tobacco Use Types Packs/Day [...] points, staff should administer the PHQ-9) 0 11/07/2020 Hunger Vital Sign Answer Date Recorded Within [...] on file Legal Sex Female 11:59 AM GRAIN SAMPLER Gender Identity Not on file Sexual Orientation [...] documented as of this encounter Care Teams Field Liability Generalist Relationship Specialty Start Date End Date Lucho Delvalle MD PCP - General 12/07/16 10/18/21 Karen Hough DO PCP - General Family Medicine 10/19/21 05/17/22 Lucho Delvalle MD [address] [place] [address] PCP - General 05/18/22 05/20/22 Karen Hough DO [address] [place] [address] PCP - General 05/21/22 07/03/23 Enoch Tavares MD [address] [place] [address] PCP - General Family Practice 07/08/23 documented as of this encounter
== END 2025-01-07 14:03 | disposition home or self-care (01) ==
PROVIDERS: PCP Family Medicine; Visit Provider Family Medicine
DX: M51.369 Other intervertebral disc degeneration, lumbar region without mention of lumbar back pain or lower extremity pain (principal)
CPT/HCPCS: 72100

== ENCOUNTER 2025-01-28 09:46 | Outpatient (CLI) | payer MEDICARE, SELFPAY ==
--- NOTE | ~2025-01-28 | DEXA_ITS ---
Bone Density Report Name: AUSTIN SHELL Age: 69 Sex: Female Ethnicity: White Date of : 1955 Indication: postmenopausal; screening for osteoporosis; Referring Provider: JULIAN GUTIERREZ Study: Bone densitometry was performed. Exam Date: January 28, 2025 Accession number: [id number] Bone Density: Region BMD T-score Z-score Classification AP Spine(L1-L4) 0.903 -1.3 0.8 Osteopenia Femoral Neck (Left) 0.723 -1.1 0.7 Osteopenia Total Hip (Left) 0.940 0.0 1.5 Normal Femoral Neck (Right) 0.763 -0.8 1.0 Normal Total Hip (Right) 0.961 0.2 1.7 Normal Total Hip Mean 0.951 0.1 1.6 Normal World Health Organization criteria for BMD impression classify patients as: Normal (T-score at or above -1.0), Osteopenia (T-score between -1.0 and -2.5), or Osteoporosis (T-score at or below -2.5). 10-year Fracture Risk(1): Major Osteoporotic Fracture 8.7% Hip Fracture 0.9% Reported Risk Factors: [place] (), Neck BMD=0.723, BMI=30.3 (1) FRAX(R) Version 3.08. Fracture probability calculated for an untreated patient. Fracture probability may be lower if the patient has received treatment. Clinical Information Provided by Patient: Patient maximum height was 61.0 Menopause Age: 53 No regular weight bearing exercise Does not regularly consume dairy products Onset of menses at age 12 Number of children 3 Impression: The patient has low bone mass, based on the Total Spine T-score. The patient has an estimated ten-year risk of hip fracture of 0.9% and an estimated ten-year risk of major fracture of 8.7%, based on the WHO FRAX algorithm. Discussion: BONE DENSITY IS LOW AT ONE OR MORE SKELETAL SITES. This patient's lowest T-score is low at one or more skeletal sites. It meets the World Health Organization's (WHO) criteria for ?low bone mass? (T-score between -1.0 and -2.5). The patient's 10-year risk of fracture as calculated by FRAX is less than the threshold where pharmacological therapy is recommended by the National Osteoporosis Foundation (NOF). However, all treatment decisions require clinical judgment and consideration of individual patient factors, including patient preferences, comorbidities, previous drug use, risk factors not captured in the FRAX model (e.g., frailty, falls, vitamin D deficiency, increased bone turnover, interval significant decline in bone density) and possible under or overestimation of fracture risk by FRAX. The patient should follow a healthful lifestyle (good nutrition with adequate calcium and vitamin D, and appropriate weight-bearing exercise). Follow-Up: Consider repeating this study in 2 to 3 years to reassess this patient's status, or sooner if there is some new clinical indication. Reported by: PARESH on 01/28/2025 10:18:00 AM. Reviewed, dictated and finalized at location A.
--- OUTSIDE RECORDS SUMMARY | 2025-01-28 09:49 | XMS_ITS | Encounter Summary ---
Author Organization [facility] Healthcare Address [address] [place] [address] Care Team Providers Care Felting Machine Operator Helper Name Role Phone Karen Hough DO Primary Care Provider [phone] Lucho Delvalle MD Primary Care Provider [phone] Karen Hough DO Primary Care Provider [phone] Enoch Tavares MD Primary Care Provider [phone] Reason for Visit * Reason Onset Date Comments Scheduling Appointments 11/13/2021 Jeramye d dexa Encounter Details Date Type Department Care Team (Late st Contact Info) Description 11/13/2021 Telephone [facility] [address] [place] [address] Chiqui Salcido, Scheduling Appointments (Confirmed dexa ) [...] on file Legal Sex Female 11:59 AM OUT OF TOWN COLLECTION CLERK Gender Identity Not on file Sexual Orientation [...] documented as of this encounter Care Teams Felting Machine Operator Helper Relationship Specialty Start Date End Date Karen Hough DO PCP - General Family Medicine 10/19/21 05/17/22 Lucho Delvalle MD [address] [place] [address] PCP - General 05/18/22 05/20/22 Karen Hough DO [address] [place] [address] PCP - General 05/21/22 07/03/23 Enoch Tavares MD [address] [place] [address] PCP - General Family Practice 07/08/23 documented as of this encounter
--- OUTSIDE RECORDS SUMMARY | 2025-01-28 09:49 | XMS_ITS | Clinical Summary ---
Author Organization [facility] Address [address] [place] [address] Care Team Providers Care Embossing Machine Operator Helper Name Role Phone Eli Sanches MD Unavailable Lucho Delvalle MD Primary Care Provider Unavail able Source Comments [facility],non-owned Affiliates and Associated Physician Practices is amultiple site organization consisting of ambulatory clinics and hospital sitesin [place], [place], [place] and [place]. This disclosure is being madepursuant to the Care Everywhere program and may not contain all information available regarding this patient. Last updated 18.[facility] [employer] Allergies No known active allergies Medications * [...] on file Legal Sex Female 4:23 AM COATING INSPECTOR Gender Identity Not on file Sexual Orientation Not on file Last Filed Vital Signs Vital Sign Reading Time Taken Comments Blood Pressure 138/80 07/16/2017 9:41 AM COATING INSPECTOR Pulse 84 07/16/2017 9:41 AM COATING INSPECTOR Temperature 36.3 C (97.4 F) 10/06/2012 1:22 PM COATING INSPECTOR Respiratory Rate 18 10/06/2012 1:34 PM COATING INSPECTOR Oxygen Saturation 93% 10/06/2012 1:34 PM COATING INSPECTOR Inhaled Oxygen Concentration - - Weight 70.8 kg (156 lb) 07/16/2017 9:41 AM COATING INSPECTOR Height 152.4 cm (5') 07/16/2017 9:41 AM COATING INSPECTOR Body Mass Index 30.47 07/16/2017 9:41 AM COATING INSPECTOR Plan of Treatment Health Maintenance Due Date [...] ENDOSCOPY, COLON, SCREENING Routine 10/07/2012 8:19 AM COATING INSPECTOR MAMMO BILAT SCREENING Routine 08/18/2012 12:28 PM COATING INSPECTOR History of screening mammography COMPREHENSIVE METABOLIC PANEL Routine 08/13/2012 9:01 AM COATING INSPECTOR Well adult exam Urinary, incontinence, stress female LIPID PROFILE Routine 08/13/2012 9:01 AM COATING INSPECTOR Well adult exam Urinary, incontinence, stress female [...] AM CDT 06/20/2017 Narrative Resulting Agency Comment [facility] [place]note 2] [address] [id number] us Eli Sanches MD LAB - CHEMISTRY ORDERABLES Final Result Performing Organization Address City/[facility] Co de Phone Number [facility] ACCOUNT BILL [address] [place] [address] * ENDOSCOPY, COLON, SCREENING (10/07/2012 8:19 AM COATING INSPECTOR) Narrative [facility] ENDOSCOPY - 10/07/2012 8:19 AM COATING INSPECTOR Procedure Note Peter Boles MD - 10/06/2012 1:20 PM CST Peter Boles MD GI PROCEDURE ORDERABLES Fin al Result Performing Organization Address [facility] Co de Phone Number [facility] [place] [address] * MAMMO SCREENING DIGITAL IMAGE BILAT (08/18/2012 12:28 PM COATING INSPECTOR) Anatomical Region Laterality Modality Breast Bilateral Mammography 08/18/2012 1:36 PM COATING INSPECTOR Narrative 08/18/2012 1:47 PM COATING INSPECTOR DIGITAL BILATERAL SCREENING MAMMOGRAMS WITH CAD CORRELATION [...] if suspicious findings are present clinically. An [employer] Certified Facility. [facility] utilize [employer] as a reminder system to notify patients [...] if suspicious findings are present clinically. An [employer] Certified Facility. [facility] utilize [employer] as a reminder system to notify patients of their next recommended mammograms. Jeaneth Pond MD MAMMO ORDERABLES Final Re sult * (ABNORMAL) COMPREHENSIVE METABOLIC PANEL (08/13/2012 9:01 AM COATING INSPECTOR) Glucose 96 65 - 99 mg/dL [facility] [...] BLOOD SPECIMEN / Unknown 08/13/2012 9:01 AM COATING INSPECTOR 08/13/2012 10:53 PM COATING INSPECTOR Narrative Resulting Agency Comment [facility] [phone] Jeaneth Pond MD LAB - CHEMISTRY ORDERABLE S Final Result [facility] ACCOUNT BILL [address] [place] [address] * (ABNORMAL) LIPID PROFILE (08/13/2012 9:01 AM COATING INSPECTOR) Cholesterol 233(H) 100 - 199 mg/dL [facility] [...] BLOOD SPECIMEN / Unknown 08/13/2012 9:01 AM COATING INSPECTOR 08/13/2012 10:53 PM COATING INSPECTOR Narrative Resulting Agency Comment [facility] [phone] Jeaneth Pond MD LAB - CHEMISTRY ORDERABLE S Final Result [facility] ACCOUNT BILL [address] [place] [address] from Last 3 Months or Most Recently Relevant to Health Maintenance Insurance [employer] [facility] Care Teams Embossing Machine Operator Helper Relationship Specialty [place] [address] [place] [address] PCP - General Internal Medicine 06/20/17 [place] [address] [address] [place] [address] Rheumatology 06/20/17
--- OUTSIDE RECORDS SUMMARY | 2025-01-28 09:50 | XMS_ITS | Clinical Summary ---
Author Organization [facility] Medical Office Building A Address [address] [place] [address] Care Team Providers Care Surgical Asst Name Role Phone Enoch Tavares MD Primary Care Provider [phone] Allergies No known active allergies Medications ketoconazole [...] CDT): History of bulging disc, consider adding qohy-ulf-edzoraw NSAID of choice. Use as directed on bottle. Herpes zoster without complication 02/07/2023 Assessment & Plan (02/07/2023 3:59 PM CDT): Prescription sent, may use jibx-dms-sjqozdv anti-itch cream and/or antihistamines as needed for itching. Bacteria in urine 02/07/2023 Assessment & Plan (02/07/2023 3:58 PM CDT): Urine culture ordered. Primary hypertension 10/19/2021 Assessment & Plan (05/22/2023 8:06 PM CDT): Blood pressure at goal less than 140/90, continue current prescription medications, amlodipine. Assessment & Plan (10/25/2022 10:22 AM SOCIAL SCIENCES CHAIR): Blood pressure at goal less than 140/90, d/c Maxzide. Continue amlodipine. Record daily bp measurements at home, send bp log in one week via [employer]. Assessment & Plan (10/11/2022 11:24 AM SOCIAL SCIENCES CHAIR): BP Readings from Last 3 Encounters: 10/11/22 [...] medications. Assessment & Plan (10/19/2021 8:20 AM SOCIAL SCIENCES CHAIR): Stable. Cont. Current prescription medications. Pure hypercholesterolemia 10/19/2021 Assessment & Plan (05/22/2023 8:07 PM CDT): LDL not at goal of < 100, low chol diet recommended. Consider a medication adjustment, once labs have been reviewed. Assessment & Plan (10/25/2022 10:22 AM SOCIAL SCIENCES CHAIR): LDL near goal of < 100, continue pravastatin. Low chol diet recommended, labs ordered. Assessment & Plan (04/23/2022 9:02 AM CDT): LDL not yet at goal of less than 100. Low-cholesterol diet recommended. Labs ordered, will follow. Assessment & Plan (10/19/2021 8:20 AM SOCIAL SCIENCES CHAIR): LDL not at goal of less than 100. Increase pravastatin 10 mg nightly up to 20 mg nightly. Low-cholesterol diet recommended. Gastroesophageal reflux disease without esophagi tis 10/19/2021 Assessment & Plan (04/23/2022 9:02 AM CDT): Stable. Cont. Current prescription medications. Assessment & Plan (10/19/2021 8:20 AM SOCIAL SCIENCES CHAIR): Asymptomatic. Stable. Continue current prescription medications. Tinnitus of both ears 10/19/2021 Bilateral hearing loss 04/10/2021 Assessment & Plan (04/10/2021 4:31 PM CDT): Hearing test and Balance testing - [facility] A Few Causes of Ringing in Your Ears (Tinnitus) discussed and Handout provided Hx of colonic polyps 05/23/2018 Overview (05/23/2018): Added automatically from request for surgery [id number] Family hx colonic polyps 05/23/2018 Overview (05/23/2018): Added automatically from request for surgery [id number] Body mass index (BMI) of 29.0 to [...] CDT): Hearing test and Balance testing - [facility] Acute cystitis with hematuria 03/31/2019 03/31/2019 Assessment [...] week over the phone once returning from [place]. Left leg pain 03/18/2019 09/24/2019 Assessment & [...] on file Legal Sex Female 11:59 AM SOCIAL SCIENCES CHAIR Gender Identity Not on file Sexual Orientation [...] (2023-2 5 season) 2024 07/10/2021, 11/15/2020, 10/13/2020 Depression Screening 05/22/2024 05/22/2023, 02/07/2023, 10/25/2022, Additional history exists Fall Risk Assessment 05/22/2024 05/22/2023, 02/07/2023, 10/25/2022, Additional history exists Influenza Vaccine (Season Ended) 2025 06/18/2022, 06/12/2021, 06/08/2020, Additional history exists Colon Cancer Screening-CT Colonography [...] Read Routine (OP Routine) 11/14/2021 11:36 AM SOCIAL SCIENCES CHAIR Screening for osteoporosis Postmenopausal HEPATITIS C ANTIBODY Routine 11/14/2021 7:41 AM SOCIAL SCIENCES CHAIR Encounter for hepatitis C screening test for low risk patient COLONOSCOPY 08/11/2018 9:26 AM SOCIAL SCIENCES CHAIR from Last 3 Months or Most Recently [...] 1 or 2 Site (11/14/2021 11:36 AM SOCIAL SCIENCES CHAIR) Anatomical Region Laterality Modality Body N/A Other 11/14/2021 9:22 PM SOCIAL SCIENCES CHAIR Narrative 11/14/2021 9:24 PM SOCIAL SCIENCES CHAIR EXAM DESCRIPTION: DEXA AXIAL SKELETON BONE DENSITY 1 OR MORE SITES REASON FOR STUDY: 65 y/o year old F with given history of screening. Finishing Lab Technician/Model: Building[employer] SL (S/N [id number]) CLINICAL INFORMATION: Current height: 60 inches Maximum [...] Rusty Staton M.D. MF: CLOVIS Report ID: [id number] Reading Location: [place] [address] Procedure Note Rusty Staton MD - 11/14/2021 EXAM DESCRIPTION: DEXA AXIAL SKELETON BONE DENSITY 1 OR MORE SITES REASON FOR STUDY: 65 y/o year old F with given history ofscreening. Finishing Lab Technician/Model: Building[employer] SL (S/N [id number]) CLINICAL INFORMATION: Current height: 60 inches Maximum [...] Rusty Staton M.D. MF: CLOVIS Report ID: [id number] Reading Location: [place] [address] us Shahab Fitzpatrick DO IMG DXA PROCEDURES Final R esult * Hepatitis C antibody (11/14/2021 7:41 AM SOCIAL SCIENCES CHAIR) Pathologist [facility] Hep C Ab Nonreactive Nonreactive [facility] B[facility]ERA ([place]) Comment: Interpretive Data Nonreactive: Antibodies to HCV [...] last revised on 2019. Testing performed by: [facility], [address] [place] [address], [place]., [address] Blood 11/14/2021 7:41 AM SOCIAL SCIENCES CHAIR 11/14/2021 2:40 PM SOCIAL SCIENCES CHAIR us Shahab Fitzpatrick DO LAB MICROBIOLOGY - GENERAL ORDERABLES Final Result [facility] [place] [address] Department [place] [address] * COLONOSCOPY (08/11/2018 9:26 AM SOCIAL SCIENCES CHAIR) Anatomical Region Laterality Modality Other Narrative Procedure Note Tien Bonner MD - 08/11/2018 9:26 AM CST [facility] Patient Name: Chiquita Shell Procedure Date: 08/11/2018 9:26 AM Date of : 1955 Admit Type: Outpatient Age: 62 Gender: Female Attending MD: Tien Bonner M.D. Room: [facility] ENDOSCOPY CAPSULE Note Status: Finalized Procedure: Colonoscopy [...] scope was passed under direct vision.The Colonoscope [id number] was introducedthrough the anus and advanced to [...] history of colonic polyps CPT copyright 2017 [employer]. All rights reserved. The codes documented in this report are preliminary and upon concrete engineer reviewmay be revised to meet current compliance requirements. 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 MEDICARE ADVANTAGE [facility] Address: [address] [address] [place] [address] COMMERCIAL GENERIC [facility] MEDIC[facility] Address: [address] [place] [address] MEDICARE ADVANTAGE [facility] MEDIC[facility] Address: [place] [address] Advance Directives For more information, please contact: [phone] * Full Code (Latest Code Status on File) Date Activated Date Inactivated Comments 08/11/2018 9:10 AM 08/11/2018 12:40 PM * Full Code Date Activated Date Inactivated Comments 08/11/2018 9:10 AM 08/11/2018 9:10 AM Care Teams Surgical Asst Relationship Specialty Start Date End Date Enoch Tavares MD PCP - General Family Practice 07/08/23
--- OUTSIDE RECORDS SUMMARY | 2025-01-28 09:50 | XMS_ITS | Referral Summary ---
Author Organization [facility] Medical Office Building A Address [address] [place] [address] Care Team Providers Care Ecommerce Marketing Manager Name Role Phone Enoch Tavares MD Primary Care Provider [phone] Allergies No known active allergies Medications ketoconazole [...] CDT): History of bulging disc, consider adding llku-mqt-sftkydi NSAID of choice. Use as directed on bottle. Herpes zoster without complication 02/07/2023 Assessment & Plan (02/07/2023 3:59 PM CDT): Prescription sent, may use [id number] anti-itch cream and/or antihistamines as needed for itching. Bacteria in urine 02/07/2023 Assessment & Plan (02/07/2023 3:58 PM CDT): Urine culture ordered. Primary hypertension 10/19/2021 Assessment & Plan (05/22/2023 8:06 PM CDT): Blood pressure at goal less than 140/90, continue current prescription medications, amlodipine. Assessment & Plan (10/25/2022 10:22 AM HUMAN PROJECTILE): Blood pressure at goal less than 140/90, d/c Maxzide. Continue amlodipine. Record daily bp measurements at home, send bp log in one week via [employer]. Assessment & Plan (10/11/2022 11:24 AM HUMAN PROJECTILE): BP Readings from Last 3 Encounters: 10/11/22 [...] medications. Assessment & Plan (10/19/2021 8:20 AM HUMAN PROJECTILE): Stable. Cont. Current prescription medications. Pure hypercholesterolemia 10/19/2021 Assessment & Plan (05/22/2023 8:07 PM CDT): LDL not at goal of < 100, low chol diet recommended. Consider a medication adjustment, once labs have been reviewed. Assessment & Plan (10/25/2022 10:22 AM HUMAN PROJECTILE): LDL near goal of < 100, continue pravastatin. Low chol diet recommended, labs ordered. Assessment & Plan (04/23/2022 9:02 AM CDT): LDL not yet at goal of less than 100. Low-cholesterol diet recommended. Labs ordered, will follow. Assessment & Plan (10/19/2021 8:20 AM HUMAN PROJECTILE): LDL not at goal of less than 100. Increase pravastatin 10 mg nightly up to 20 mg nightly. Low-cholesterol diet recommended. Gastroesophageal reflux disease without esophagi tis 10/19/2021 Assessment & Plan (04/23/2022 9:02 AM CDT): Stable. Cont. Current prescription medications. Assessment & Plan (10/19/2021 8:20 AM HUMAN PROJECTILE): Asymptomatic. Stable. Continue current prescription medications. Tinnitus of both ears 10/19/2021 Bilateral hearing loss 04/10/2021 Assessment & Plan (04/10/2021 4:31 PM CDT): Hearing test and Balance testing - [facility] A Few Causes of Ringing in Your Ears (Tinnitus) discussed and Handout provided Hx of colonic polyps 05/23/2018 Overview (05/23/2018): Added automatically from request for surgery [id number] Family hx colonic polyps 05/23/2018 Overview (05/23/2018): Added automatically from request for surgery [id number] Body mass index (BMI) of 29.0 to [...] CDT): Hearing test and Balance testing - [facility] Acute cystitis with hematuria 03/31/2019 03/31/2019 [...] schedule next week upon returning back from [place] trip to look further into these abnormalities [...] week over the phone once returning from [place]. Left leg pain 03/18/2019 09/24/2019 Assessment & [...] on file Legal Sex Female 11:59 AM HUMAN PROJECTILE Gender Identity Not on file Sexual Orientation [...] Read Routine (OP Routine) 11/14/2021 11:36 AM HUMAN PROJECTILE Screening for osteoporosis Postmenopausal HEPATITIS C ANTIBODY Routine 11/14/2021 7:41 AM HUMAN PROJECTILE Encounter for hepatitis C screening test for low risk patient COLONOSCOPY 08/11/2018 9:26 AM HUMAN PROJECTILE from Last 3 Months or Most Recently [...] 1 or 2 Site (11/14/2021 11:36 AM HUMAN PROJECTILE) Anatomical Region Laterality Modality Body N/A Other 11/14/2021 9:22 PM HUMAN PROJECTILE Narrative 11/14/2021 9:24 PM HUMAN PROJECTILE EXAM DESCRIPTION: DEXA AXIAL SKELETON BONE DENSITY 1 OR MORE SITES REASON FOR STUDY: 65 y/o year old F with given history of screening. Toll Service Observer/Model: Omate Discovery SL (S/N [id number]) CLINICAL INFORMATION: Current height: 60 inches Maximum [...] Rusty Staton M.D. MF: CLOVIS Report ID: [id number] Reading Location: [address] Note Rusty Staton MD - 11/14/2021 EXAM DESCRIPTION: DEXA AXIAL SKELETON BONE DENSITY 1 OR MORE SITES REASON FOR STUDY: 65 y/o year old F with given history ofscreening. Toll Service Observer/Model: Cliq SL (S/N [id number]) CLINICAL INFORMATION: Current height: 60 inches Maximum [...] Rusty Staton M.D. MF: CLOVIS Report ID: [id number] Reading Location: [place] [address] us Shahab Hough DO IMG DXA PROCEDURES Final R esult * Hepatitis C antibody (11/14/2021 7:41 AM HUMAN PROJECTILE) Hep C Ab Nonreactive Nonreactive PARIS GUILLEN) [...] last revised on 2019. Testing performed by: [facility], [address] [place] [address], [place]., [address] Blood 11/14/2021 7:41 AM HUMAN PROJECTILE 11/14/2021 2:40 PM HUMAN PROJECTILE us Shahab Hough DO LAB MICROBIOLOGY - GENERAL ORDERABLES Final Result PARIS BARRERA (BETH) 1 [facility] [place] [address] * COLONOSCOPY (08/11/2018 9:26 AM HUMAN PROJECTILE) Anatomical Region Laterality Modality Other Narrative Procedure Note Tien Bonner MD - 08/11/2018 9:26 AM CST [facility] Patient Name: Chiquita Shell Procedure Date: 08/11/2018 9:26 AM Date of : 1955 Admit Type: Outpatient Age: 62 Gender: Female Attending MD: Tien Bonner M.D. Room: [facility] Note Status: Finalized Procedure: Colonoscopy [...] scope was passed under direct vision.The Colonoscope [id number] was introducedthrough the anus and advanced to [...] history of colonic polyps CPT copyright 2017 [employer]. All rights reserved. The codes documented in this report are preliminary and upon sifter and miller reviewmay be revised to meet current compliance requirements. 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.coli urine 03/31/19 03/31/2019 03/31/2019 Insurance [employer]LAN [facility] MEDICARE ADVANTAGE COMMERCIAL GENERIC [id number] MEDICARE ADVANTAGE [facility] MEDICARE ADVANTAGE Advance Directives For more information, please contact: [phone] * Full Code (Latest Code Status on File) Date Activated Date Inactivated Comments 08/11/2018 9:10 AM 08/11/2018 12:40 PM * Full Code Date Activated Date Inactivated Comments 08/11/2018 9:10 AM 08/11/2018 9:10 AM Care Teams Ecommerce Marketing Manager Relationship Specialty Start Date End Date Enoch Tavares MD PCP - General Family Practice 07/08/23
--- OUTSIDE RECORDS SUMMARY | 2025-01-28 09:50 | XMS_ITS | Clinical Summary ---
Author Organization [facility] Address [address] [place] [address] Phone Care Team Providers Care Ash Collector Name Role Phone Lucho Delvalle MD Primary Care Provider [phone] Allergies No known active allergies Medications ondansetron [...] - 11/16/2024 9:20 AM CDT Surgery [facility] Periop [address] [place] [address] Kristi Hensley MD PhD CATARACT EXTRACTION WITH INTRAOCULAR LENS PLACEMENT, RIGHT EYE 11/16/2024 8:57 AM CDT Anesthesia Event [facility] Periop [address] [place] [address] Vargas Momin MD 11/16/2024 7:48 AM CDT - 11/16/2024 9:20 AM CDT Hospital Encounter [facility] Preop/Pacu II [address] [place] [address] Kristi Hensley MD PhD Provider, Anesthesiologist Discharge Disposition: Discharged to home or Selfcare 11/16/2024 Travel 11/09/2024 Travel from Last 3 Months Family History [...] 73.9 kg (163 lb) 11/09/2024 9:00 AM BLUE LEATHER SORTER Height 152.4 cm (5') 11/09/2024 9:00 AM BLUE LEATHER SORTER Body Mass Index 31.83 11/09/2024 9:00 AM BLUE LEATHER SORTER Plan of Treatment Health Maintenance Due Date Last Done Comments TdaP Immunization 1955 Cologuard 2004 Immunochemical Fecal Occult Blood 2004 Mammogram 05/24/2023 05/24/2022, 05, 08/02/2018, Additional history exists DEXA Bone Density [...] this topic Medical Devices Implanted Type Area Software Team Leader Device Identifier Shelf Expiration Date Model / Serial / Lot Left Lens Implanted:Qty: 1 on 10/26/2024 by Kristi Hensley MD PhD at [facility] Left: Eye TRISTA & TRISTA 11/30/2025 DCB0 0 / [id number] / [id number] Technis 1-Piece Iol Implanted:Qty: 1 on 11/16/2024 by Kristi Hensley MD PhD at [facility] Right: Eye 09/16/2026 [id number] / [id number] / [id number] Procedures Procedure Name Priority Date/Time Associated Diagnosis Comments EXTCAP RMVL INSERT INTRAOC PROSTH W/ECP 11/16/2024 8:48 AM CDT VISUALLY SIGNIFICANT CATARACT, RIGHT EYE Special Needs 5'0 163LBS LEFT EYE DONE 10/26. HTN EXTCAP INSERT INTROC PROSTH W/ECP 11/16/2024 8:48 AM CDT VISUALLY SIGNIFICANT CATARACT, RIGHT EYE Special Needs 5'0 163LBS LEFT EYE DONE 10/26. HTN WV XCAPSL CTRC RMVL INSJ IO LENS PROSTH W/O ECP 11/16/2024 8:48 AM CDT VISUALLY SIGNIFICANT CATARACT, RIGHT EYE Special Needs 5'0 163LBS LEFT EYE DONE 10/26. HTN REMV CATARACT INTRACAP,INSERT LENS 11/16/2024 8:48 AM CDT VISUALLY SIGNIFICANT CATARACT, RIGHT EYE Special Needs 5'0 163LBS LEFT EYE DONE 10/26. HTN WV XCAPSL CTRC RMVL INSJ IO LENS PROSTH CPLX WO ECP 11/16/2024 8:48 AM CDT VISUALLY SIGNIFICANT CATARACT, RIGHT EYE Special Needs 5'0 163LBS LEFT EYE DONE 10/26. HTN from Last 3 Months Insurance MEDICARE C [facility] Advance Directives * Full Code (Latest Code Status on File) Date Activated Date Inactivated Comments 02/26/2017 9:50 AM 03/01/2017 4:37 PM CPR-Full Adi atment: FULL ARREST: Attempt Resuscitation/CPR wit intubation and mechanical ventilation. PRE-ARREST: Use entire range of life support measures to stabilize the patient. Care Teams Ash Collector Relationship Specialty Start Date End Date Lucho Delvalle MD 2 [facility] [address] [address] PCP - General Internal Medicine 02/26/17
--- OUTSIDE RECORDS SUMMARY | 2025-01-28 09:50 | XMS_ITS | Encounter Summary ---
Author Organization [facility] Healthcare Address [address] [place] [address] Care Team Providers Care Media Services Director Name Role Phone Lucho Delvalle MD Primary Care Provider [phone] Karen Hough DO Primary Care Provider [phone] Lucho Delvalle MD Primary Care Provider [phone] Karen Hough DO Primary Care Provider [phone] Enoch Tavares MD Primary Care Provider [phone] Reason for Visit * Reason Onset Date Comments Scheduling Appointments 01/25/2021 Confirmi ng mammogram appt- no answer Encounter Details Date Type Department Care Team (Late st Contact Info) Description 01/25/2021 Telephone [facility] [address] [place] [address] Joanie Campbell RT Scheduling Appointments (Confirming mammogram [...] on file Legal Sex Female 11:59 AM DIRECTOR TRIAL Gender Identity Not on file Sexual Orientation [...] documented as of this encounter Care Teams Media Services Director Relationship Specialty Start Date End Date Lucho Delvalle MD PCP - General 12/07/16 10/18/21 Karen Hough DO PCP - General Family Medicine 10/19/21 05/17/22 Lucho Delvalle MD [address] [place] [address] PCP - General 05/18/22 05/20/22 Karen Hough DO [address] [place] [address] PCP - General 05/21/22 07/03/23 Enoch Tavares MD [address] [place] [address] PCP - General Family Practice 07/08/23 documented as of this encounter
== END 2025-01-28 09:47 | disposition home or self-care (01) ==
LOC: ANHIMG 09:47
PROVIDERS: PCP Family Medicine; Visit Provider Family Medicine
DX: M85.89 Other specified disorders of bone density and structure, multiple sites (principal); Z78.0 Asymptomatic menopausal state
CPT/HCPCS: 77080

== ENCOUNTER 2025-05-13 16:15 | Outpatient (CLI) | payer MEDICARE, SELFPAY ==
--- NOTE | ~2025-05-13 | MM_ITS ---
EXAMINATION: MM screening tori BI w raheem HISTORY: Screening TECHNIQUE: Craniocaudal and mediolateral oblique 3-D tomosynthesis images were obtained and synthetic 2-D images were generated. CAD analysis was submitted and interpreted. COMPARISON: No prior mammogram is available for comparison at this institution. BREAST PARENCHYMAL COMPOSITION: There are scattered areas of fibroglandular density. FINDINGS: There is no evidence of suspicious mass, calcification, or architectural distortion to suggest malignancy. IMPRESSION: 1. No mammographic evidence of malignancy. Recommend routine screening mammography in one year. BI-RADS Category 2: Benign finding(s) Reviewed, dictated and finalized at location Q. IMPRESSION: 1. No mammographic evidence of malignancy. Recommend routine screening mammogra phy in one year. BI-RADS Category 2: Benign finding(s)
--- OUTSIDE RECORDS SUMMARY | 2025-05-13 16:25 | XMS_ITS | Clinical Summary ---
Author Organization [facility] Address [address] [place] [address] Care Team Providers Care Commercial Floor Covering Installer Name Role Phone Eli Sanches MD Unavailable Lucho Delvalle MD Primary Care Provider Unavail able Source Comments [facility],non-owned Affiliates and Associated Physician Practices is amultiple site organization consisting of ambulatory clinics and hospital sitesin [place], [place], [place] and [place]. This disclosure is being madepursuant to the Care Everywhere program and may not contain all information available regarding this patient. Last updated 18.[facility] Allergies No known active allergies Medications * [...] on file Legal Sex Female 4:23 AM CALCULATION CLERK Gender Identity Not on file Sexual Orientation Not on file Last Filed Vital Signs Vital Sign Reading Time Taken Comments Blood Pressure 138/80 07/16/2017 9:41 AM CALCULATION CLERK Pulse 84 07/16/2017 9:41 AM CALCULATION CLERK Temperature 36.3 C (97.4 F) 10/06/2012 1:22 PM CALCULATION CLERK Respiratory Rate 18 10/06/2012 1:34 PM CALCULATION CLERK Oxygen Saturation 93% 10/06/2012 1:34 PM CALCULATION CLERK Inhaled Oxygen Concentration - - Weight 70.8 kg (156 lb) 07/16/2017 9:41 AM CALCULATION CLERK Height 152.4 cm (5') 07/16/2017 9:41 AM CALCULATION CLERK Body Mass Index 30.47 07/16/2017 9:41 AM CALCULATION CLERK Plan of Treatment Health Maintenance Due Date [...] 10/07/2022 10/07/2012, 10/06/2012 Colorectal Cancer Screening 10/07/2022 DEPRESSION SCREENING 09/09/2024 COVID-19 VACCINE ( season) 2025 INFLUENZA VACCINE (#1) 2025 7, 05/28/2016, 07/09/2014 Respiratory Syncytial Virus (RSV) Vaccine [...] ENDOSCOPY, COLON, SCREENING Routine 10/07/2012 8:19 AM CALCULATION CLERK MAMMO BILAT SCREENING Routine 08/18/2012 12:28 PM CALCULATION CLERK History of screening mammography COMPREHENSIVE METABOLIC PANEL Routine 08/13/2012 9:01 AM CALCULATION CLERK Well adult exam Urinary, incontinence, stress female LIPID PROFILE Routine 08/13/2012 9:01 AM CALCULATION CLERK Well adult exam Urinary, incontinence, stress female [...] AM CDT 06/20/2017 Narrative Resulting Agency Comment [facility] [address] [phone] us Eli Sanches MD LAB - CHEMISTRY ORDERABLES Final Result Performing Organization Address [facility] Co de Phone Number [facility] ACCOUNT BILL [address] [place] [address] * ENDOSCOPY, COLON, SCREENING (10/07/2012 8:19 AM CALCULATION CLERK) Narrative [facility] - 10/07/2012 8:19 AM CALCULATION CLERK Procedure Note Peter Boles MD - 10/06/2012 1:20 PM CST Peter Boles MD GI PROCEDURE ORDERABLES Fin al Result Performing Organization Address [facility] de Phone Number [facility] [place] [address] * MAMMO SCREENING DIGITAL IMAGE BILAT (08/18/2012 12:28 PM CALCULATION CLERK) Anatomical Region Laterality Modality Breast Bilateral Mammography 08/18/2012 1:36 PM CALCULATION CLERK Narrative 08/18/2012 1:47 PM CALCULATION CLERK DIGITAL BILATERAL SCREENING MAMMOGRAMS WITH CAD CORRELATION [...] if suspicious findings are present clinically. An [employer] Certified Facility. [facility] utilize [employer] as a reminder system to notify patients [...] if suspicious findings are present clinically. An [employer] Certified Facility. [facility] utilize [employer] as a reminder system to notify patients of their next recommended mammograms. Jeaneth Pond MD MAMMO ORDERABLES Final Re sult * (ABNORMAL) COMPREHENSIVE METABOLIC PANEL (08/13/2012 9:01 AM CALCULATION CLERK) Glucose 96 65 - 99 mg/dL [facility] [...] BLOOD SPECIMEN / Unknown 08/13/2012 9:01 AM CALCULATION CLERK 08/13/2012 10:53 PM CALCULATION CLERK Narrative Resulting Agency Comment [address] [phone] Jeaneth Pond MD LAB - CHEMISTRY ORDERABLE S Final Result [facility] ACCOUNT BILL [address] [place] [address] * (ABNORMAL) LIPID PROFILE (08/13/2012 9:01 AM CALCULATION CLERK) Cholesterol 233(H) 100 - 199 mg/dL [facility] [...] BLOOD SPECIMEN / Unknown 08/13/2012 9:01 AM CALCULATION CLERK 08/13/2012 10:53 PM CALCULATION CLERK Narrative Resulting Agency Comment [place] [id number] [id number] Jeaneth Pond MD LAB - CHEMISTRY ORDERABLE S Final Result [facility] ACCOUNT BILL [address] [place] [address] from Last 3 Months or Most Recently Relevant to Health Maintenance Insurance [employer] [facility] Care Teams Commercial Floor Covering Installer Relationship Specialty [place] [id number] [place] [address] PCP - General Internal Medicine 06/20/17 [place] [id number] [place] [id number] Rheumatology 06/20/17
--- OUTSIDE RECORDS SUMMARY | 2025-05-13 16:25 | XMS_ITS | Encounter Summary ---
Author Organization [facility] Healthcare Address [address] [place] [address] Care Team Providers Care Agricultural Mechanic Name Role Phone Karen Hough DO Primary Care Provider [phone] Lucho Delvalle MD Primary Care Provider [phone] Karen Hough DO Primary Care Provider [phone] Enoch Tavares MD Primary Care Provider [phone] Reason for Visit * Reason Onset Date Comments Scheduling Appointments 11/13/2021 Jeramye d dexa Encounter Details Date Type Department Care Team (Late st Contact Info) Description 11/13/2021 Telephone [facility] [address] [place] [address] Chiqui Salcido, Scheduling Appointments (Confirmed dexa ) [...] on file Legal Sex Female 11:59 AM APPLIANCE SALES ASSOCIATE Gender Identity Not on file Sexual Orientation [...] documented as of this encounter Care Teams Agricultural Mechanic Relationship Specialty Start Date End Date Karen Hough DO PCP - General Family Medicine 10/19/21 05/17/22 Lucho Delvalle MD [address] [facility] [place] [address] PCP - General 05/18/22 05/20/22 Karen Hough DO [address] [place] [address] PCP - General 05/21/22 07/03/23 Enoch Tavares MD [address] [place] [address] PCP - General Family Practice 07/08/23 documented as of this encounter
--- OUTSIDE RECORDS SUMMARY | 2025-05-13 16:26 | XMS_ITS | Clinical Summary ---
Author Organization [facility] Address [address] [place] [address] Phone Care Team Providers Care Legal Manager Name Role Phone Lucho Delvalle MD Primary Care Provider [phone] Allergies No known active allergies Medications ondansetron [...] (02/26/2017): LLE UTI (urinary tract infection) 02/26/2017 Family History Medical History Relation Name Comments [...] 73.9 kg (163 lb) 11/09/2024 9:00 AM C PROGRAMMER Height 152.4 cm (5') 11/09/2024 9:00 AM C PROGRAMMER Body Mass Index 31.83 11/09/2024 9:00 AM C PROGRAMMER Plan of Treatment Health Maintenance Due Date Last Done Comments TdaP Immunization 1955 Cologuard 12/21/1999 Immunochemical Fecal Occult Blood 12/21/1999 Mammogram 05/24/2023 05/24/2022, 01/08, 08/02/2018, Additional history exists DEXA Bone Density 11/15/2023 11/14/2021, 06/06/2017 Influenza Immunization (#1) 2025 10/0 11/2023, 07/02/2023, 06/18/2022, Additional history exists SARS-COV-2 Immunization ( season) 2025 07/10/2021, 11/15/2020, 10/13/2020 Colonoscopy 08/11/2028 08/11/2018 Colorectal Cancer Screening 08/11/2028 Respiratory Syncytial Virus (RSV) Immunization (Adult) (1 - 1-dose 75+ series) 2029 DTaP/Tdap/Td Immunization Discontinued 05/07/2005 Hepatitis C Virus (HCV) Screening Completed 06/20/2017 Zoster Immunization Completed 09/26/2018, 07/04/2018, 07/20/2015, Additional history exists Pneumococcal Immunization (50+ years) Completed 04/23/2022, 08/13/2012 Pneumococcal Immunization Combined Discontinued 04/23/2022, 08/13/2012 Hepatitis B Immunization Aged Out No longer eligible based on patient's age to complete this topic Human Papillomavirus (HPV) Immunization Aged Out No longer eligible based on patient's age to complete this topic Meningococcal Immunization (ACWY) Aged Out No longer eligible based on patient's age to complete this topic Rotavirus Immunization Aged Out No lo nger eligible based on patient's age to complete this topic Medical Devices Implanted Type Area Vest Finisher Device Identifier Shelf Expiration Date Model / Serial / Lot Left Lens Implanted:Qty: 1 on 10/26/2024 by Kristi Hensley MD PhD at [facility] Left: Eye TRISTA & TRISTA 11/30/2025 DCB0 0 / DCB00 / [id number] 1-Piece Iol Implanted:Qty: 1 on 11/16/2024 by Kristi Hensley MD PhD at [facility] Right: Eye 09/16/2026 [id number] / [id number] / [id number] [facility] Advance Directives * Full Code (Latest Code Status on File) Date Activated Date Inactivated Comments 02/26/2017 9:50 AM 03/01/2017 4:37 PM CPR-Full Adi atment: FULL ARREST: Attempt Resuscitation/CPR wit intubation and mechanical ventilation. PRE-ARREST: Use entire range of life support measures to stabilize the patient. Care Teams Legal Manager Relationship Specialty Start Date End Date Lucho Delvalle MD [address] [facility] [place] [place] [address] PCP - General Internal Medicine 02/26/17
--- OUTSIDE RECORDS SUMMARY | 2025-05-13 16:26 | XMS_ITS | Clinical Summary ---
Author Organization [facility] A Address [address] [place] [address] Care Team Providers Care Beam Saw Operator Name Role Phone Enoch Tavares MD Primary Care Provider [phone] Allergies No known active allergies Medications ketoconazole [...] CDT): History of bulging disc, consider adding ptnv-mri-awzhtus NSAID of choice. Use as directed on bottle. Herpes zoster without complication 02/07/2023 Assessment & Plan (02/07/2023 3:59 PM CDT): Prescription sent, may use iivc-roc-ihozqrm anti-itch cream and/or antihistamines as needed for itching. Bacteria in urine 02/07/2023 Assessment & Plan (02/07/2023 3:58 PM CDT): Urine culture ordered. Primary hypertension 10/19/2021 Assessment & Plan (05/22/2023 8:06 PM CDT): Blood pressure at goal less than 140/90, continue current prescription medications, amlodipine. Assessment & Plan (10/25/2022 10:22 AM ORGANIC EXTRACTIONS TECHNICIAN): Blood pressure at goal less than 140/90, d/c Maxzide. Continue amlodipine. Record daily bp measurements at home, send bp log in one week via [employer]. Assessment & Plan (10/11/2022 11:24 AM ORGANIC EXTRACTIONS TECHNICIAN): BP Readings from Last 3 Encounters: 10/11/22 102/68 04/23/22 108/72 10/19/21 102/68 Vitals BP 102/68 (BP Location: Left arm, Patient Position: Sitting) Pulse 75 Resp 18 Ht 155.7 cm (5' 1.3) Wt 73.5 kg (162 lb) LMP 09/09/2007 [...] medications. Assessment & Plan (10/19/2021 8:20 AM ORGANIC EXTRACTIONS TECHNICIAN): Stable. Cont. Current prescription medications. Pure hypercholesterolemia 10/19/2021 Assessment & Plan (05/22/2023 8:07 PM CDT): LDL not at goal of < 100, low chol diet recommended. Consider a medication adjustment, once labs have been reviewed. Assessment & Plan (10/25/2022 10:22 AM ORGANIC EXTRACTIONS TECHNICIAN): LDL near goal of < 100, continue pravastatin. Low chol diet recommended, labs ordered. Assessment & Plan (04/23/2022 9:02 AM CDT): LDL not yet at goal of less than 100. Low-cholesterol diet recommended. Labs ordered, will follow. Assessment & Plan (10/19/2021 8:20 AM ORGANIC EXTRACTIONS TECHNICIAN): LDL not at goal of less than 100. Increase pravastatin 10 mg nightly up to 20 mg nightly. Low-cholesterol diet recommended. Gastroesophageal reflux disease without esophagi tis 10/19/2021 Assessment & Plan (04/23/2022 9:02 AM CDT): Stable. Cont. Current prescription medications. Assessment & Plan (10/19/2021 8:20 AM ORGANIC EXTRACTIONS TECHNICIAN): Asymptomatic. Stable. Continue current prescription medications. Tinnitus of both ears 10/19/2021 Bilateral hearing loss 04/10/2021 Assessment & Plan (04/10/2021 4:31 PM CDT): Hearing test and Balance testing - [facility] A Few Causes of Ringing in Your Ears (Tinnitus) discussed and Handout provided Hx of colonic polyps 05/23/2018 Overview (05/23/2018): Added automatically from request for surgery [id number] Family hx colonic polyps 05/23/2018 Overview (05/23/2018): Added automatically from request for surgery [id number] Body mass index (BMI) of 29.0 to [...] CDT): Hearing test and Balance testing - [facility] Acute cystitis with hematuria 03/31/2019 03/31/2019 [...] week over the phone once returning from [place]. Left leg pain 03/18/2019 09/24/2019 Assessment & [...] on file Legal Sex Female 11:59 AM ORGANIC EXTRACTIONS TECHNICIAN Gender Identity Not on file Sexual Orientation [...] 12:40 PM CDT Height 155.7 cm (5' 1.3) 05/22/2023 12 :40 PM CDT Body Mass [...] 11/15/2023 11/14/2021, 07/06/2017, 06/06/2017, Additional history exists Depression Screening 05/22/2024 05/22/2023, 02/07/2023, 10/25/2022, Additional history exists Fall Risk Assessment 05/22/2024 05/22/2023, 02/07/2023, 10/25/2022, Additional history exists Covid-19 Vaccine (2024- 6 season) 2025 07/10/2021, 11/15/2020, 10/13/2020 Influenza Vaccine (#1) 2025 , 06/12/2021, 06/08/2020, Additional history exists Colon Cancer [...] Read Routine (OP Routine) 11/14/2021 11:36 AM ORGANIC EXTRACTIONS TECHNICIAN Screening for osteoporosis Postmenopausal HEPATITIS C ANTIBODY Routine 11/14/2021 7:41 AM ORGANIC EXTRACTIONS TECHNICIAN Encounter for hepatitis C screening test for low risk patient COLONOSCOPY 08/11/2018 9:26 AM ORGANIC EXTRACTIONS TECHNICIAN from Last 3 Months or Most Recently [...] 1 or 2 Site (11/14/2021 11:36 AM ORGANIC EXTRACTIONS TECHNICIAN) Anatomical Region Laterality Modality Body N/A Other 11/14/2021 9:22 PM ORGANIC EXTRACTIONS TECHNICIAN Narrative 11/14/2021 9:24 PM ORGANIC EXTRACTIONS TECHNICIAN EXAM DESCRIPTION: DEXA AXIAL SKELETON BONE DENSITY 1 OR MORE SITES REASON FOR STUDY: 65 y/o year old F with given history of screening. Assistant Associate Full Professor/Model: [employer] (S/N [id number]) CLINICAL INFORMATION: Current height: 60 inches Maximum [...] Rusty Staton M.D. MF: CL[facility]IS Report ID: [id number] Reading Location: [place] [address] Procedure Note Rusty Staton MD - 11/14/2021 EXAM DESCRIPTION: DEXA AXIAL SKELETON BONE DENSITY 1 OR MORE SITES REASON FOR STUDY: 65 y/o year old F with given history ofscreening. Assistant Associate Full Professor/Model: [employer] (S/N [id number]) CLINICAL INFORMATION: Current height: 60 inches Maximum [...] Rusty Staton M.D. MF: [facility] Report ID: [id number] Reading Location: [place] [address] us Shahab Fitzpatrick DO IMG DXA PROCEDURES Final R esult * Hepatitis C antibody (11/14/2021 7:41 AM ORGANIC EXTRACTIONS TECHNICIAN) Pathologist [facility] Hep C Ab Nonreactive Nonreactive [facility] Comment: Interpretive Data Nonreactive: Antibodies to HCV [...] on 2019. Testing performed by: [facility], [address] [place] [address], [place]., [address] Blood 11/14/2021 7:41 AM ORGANIC EXTRACTIONS TECHNICIAN 11/14/2021 2:40 PM ORGANIC EXTRACTIONS TECHNICIAN us Shahab Fitzpatrick DO LAB MICROBIOLOGY - GENERAL ORDERABLES Final Result [facility] [place] [address] Department [place] [address] * COLONOSCOPY (08/11/2018 9:26 AM ORGANIC EXTRACTIONS TECHNICIAN) Anatomical Region Laterality Modality Other Narrative Procedure Note Tien Bonner MD - 08/11/2018 9:26 AM CST [facility] Patient Name: Chiquita Shell Procedure Date: 08/11/2018 9:26 AM Date of : 1955 Admit Type: Outpatient Age: 62 Gender: Female Attending MD: Tien Bonner M.D. Room: [facility] ENDOSCOPY CAPSULE Note Status: Finalized Procedure: Colonoscopy [...] scope was passed under direct vision.The Colonoscope [id number] was introducedthrough the anus and advanced to [...] history of colonic polyps CPT copyright 2017 [employer]. All rights reserved. The codes documented in this report are preliminary and upon jewel corner brushing machine operator reviewmay be revised to meet current compliance requirements. 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
--- OUTSIDE RECORDS SUMMARY | 2025-05-13 16:26 | XMS_ITS | Encounter Summary ---
Author Organization [facility] Address [address] [place] [address] Care Team Providers Care Automatic Fabric Cutter Name Role Phone Lucho Delvalle MD Primary Care Provider [phone] Karen Hough DO Primary Care Provider [phone] Lucho Delvalle MD Primary Care Provider [phone] Karen Hough DO Primary Care Provider [phone] Enoch Tavares MD Primary Care Provider [phone] Reason for Visit * Reason Onset Date Comments Scheduling Appointments 01/25/2021 Confirmi ng mammogram appt- no answer Encounter Details Date Type Department Care Team (Late st Contact Info) Description 01/25/2021 Telephone [facility] [address] [place] [id number] Joanie Campbell RT Scheduling Appointments (Confirming mammogram [...] on file Legal Sex Female 11:59 AM BARREL FILLER Gender Identity Not on file Sexual Orientation [...] documented as of this encounter Care Teams Automatic Fabric Cutter Relationship Specialty Start Date End Date Lucho Delvalle MD PCP - General 12/07/16 10/18/21 Karen Hough DO PCP - General Family Medicine 10/19/21 05/17/22 Lucho Delvalle MD [address] [place] [address] PCP - General 05/18/22 05/20/22 Karen Hough DO [address] [place] [address] PCP - General 05/21/22 07/03/23 Enoch Tavares MD [address] [place] [address] PCP - General Family Practice 07/08/23 documented as of this encounter
== END 2025-05-13 16:16 | disposition home or self-care (01) ==
LOC: ANHFOHIMG 16:23
PROVIDERS: PCP Family Medicine; Visit Provider Family Medicine
DX: Z12.31 Encounter for screening mammogram for malignant neoplasm of breast (principal)
CPT/HCPCS: 77063; 77067

== ENCOUNTER 2025-08-10 11:41 | Outpatient (CLI) | payer MEDICARE, SELFPAY ==
--- OUTSIDE RECORDS SUMMARY | 2025-08-10 12:36 | XMS_ITS | Clinical Summary ---
Author Organization [facility] Address [address] [place] [address] Phone Care Team Providers Care Edi Developer Name Role Phone Lucho Delvalle MD Primary Care Provider Allergies No known active allergies Medications ondansetron [...] 73.9 kg (163 lb) 11/09/2024 9:00 AM [place] Height 152.4 cm (5') 11/09/2024 9:00 AM [place] Body Mass Index 31.83 11/09/2024 9:00 AM [place] Plan of Treatment Health Maintenance Due Date Last Done Comments TdaP Immunization 1955 Cologuard 12/21/1999 Immunochemical Fecal Occult Blood 12/21/1999 Mammogram 05/24/2023 05/24/2022, 05/, 08/02/2018, Additional history exists DEXA Bone Density 11/15/2023 11/14/2021, 06/06/2017 Welcome to Medicare (IPPE) G0402 09/09/2024 Influenza Immunization (#1) 2025 10/0 11/2023, 07/02/2023, [...] this topic Medical Devices Implanted Type Area Academic Advisement Director Device Identifier Shelf Expiration Date Model / Serial / Lot Left Lens Implanted:Qty: 1 on 10/26/2024 by Kristi Hensley MD PhD at [facility] Left: Eye [employer] 11/30/2025 DCB0 0 / DCB00 / [id number] [employer] 1-Piece Iol Implanted:Qty: 1 on 11/16/2024 by Kristi Hensley MD PhD at [facility] Right: Eye 09/16/2026 [id number] / [id number] / [id number] Insurance [facility]IC[facility] Advance Directives * Full Code (Latest Code Status on File) Date Activated Date Inactivated Comments 02/26/2017 9:50 AM 03/01/2017 4:37 PM CPR-Full Adi atment: FULL ARREST: Attempt Resuscitation/CPR wit intubation and mechanical ventilation. PRE-ARREST: Use entire range of life support measures to stabilize the patient. Care Teams Edi Developer Relationship Specialty Start Date End Date Lucho Delvalle MD [address] [facility] [address] [address] PCP - General Internal Medicine 02/26/17
--- OUTSIDE RECORDS SUMMARY | 2025-08-10 12:36 | XMS_ITS | Encounter Summary ---
Author Organization [facility] Healthcare Address [address] [place] [address] Care Team Providers Care Animal Care Attendant Name Role Phone Karen Hough DO Primary Care Provider [phone] Lucho Delvalle MD Primary Care Provider [phone] Karen Hough DO Primary Care Provider [phone] Eonch Tavares MD Primary Care Provider [phone] Reason for Visit * Reason Onset Date Comments Scheduling Appointments 11/13/2021 Jeramye d dexa Encounter Details Date Type Department Care Team (Late st Contact Info) Description 11/13/2021 Telephone [facility] [address] [place] [address] Chiqui Salcido, Scheduling Appointments (Confirmed dexa ) [...] on file Legal Sex Female 11:59 AM TRAFFIC SIGNAL SUPERVISOR MAINTENANCE Gender Identity Not on file Sexual Orientation [...] documented as of this encounter Care Teams Animal Care Attendant Relationship Specialty Start Date End Date Karen Hough DO PCP - General Family Medicine 10/19/21 05/17/22 Lucho Delvalle MD [address] [place] [address] PCP - General 05/18/22 05/20/22 Karen Hough DO [address] [place] [address] PCP - General 05/21/22 07/03/23 Enoch Tavares MD [address] [address] [place] [address] PCP - General Family Practice 07/08/23 documented as of this encounter
--- OUTSIDE RECORDS SUMMARY | 2025-08-10 12:36 | XMS_ITS | Clinical Summary ---
Author Organization [facility] Address [address] [place] [address] Care Team Providers Care Environmental Protection Forester Name Role Phone Eli Sanches MD Unavailable Lucho Delvalle MD Primary Care Provider Unavail able Source Comments [facility],non-owned Affiliates and Associated Physician Practices is amultiple site organization consisting of ambulatory clinics and hospital sitesin [place], [place], [place] and [place]. This disclosure is being madepursuant to the Care Everywhere program and may not contain all information available regarding this patient. Last updated 18.[facility] shoutr Allergies No known active allergies Medications * [...] on file Legal Sex Female 4:23 AM AEROSPACE ENGINEER Gender Identity Not on file Sexual Orientation Not on file Last Filed Vital Signs Vital Sign Reading Time Taken Comments Blood Pressure 138/80 07/16/2017 9:41 AM AEROSPACE ENGINEER Pulse 84 07/16/2017 9:41 AM AEROSPACE ENGINEER Temperature 36.3 C (97.4 F) 10/06/2012 1:22 PM AEROSPACE ENGINEER Respiratory Rate 18 10/06/2012 1:34 PM AEROSPACE ENGINEER Oxygen Saturation 93% 10/06/2012 1:34 PM AEROSPACE ENGINEER Inhaled Oxygen Concentration - - Weight 70.8 kg (156 lb) 07/16/2017 9:41 AM AEROSPACE ENGINEER Height 152.4 cm (5') 07/16/2017 9:41 AM AEROSPACE ENGINEER Body Mass Index 30.47 07/16/2017 9:41 AM AEROSPACE ENGINEER Plan of Treatment Health Maintenance Due Date [...] Screening 10/07/2022 DEPRESSION SCREENING 09/09/2024 COVID-19 VACCINE (2024- season) 2025 INFLUENZA VACCINE (#1) 2025 7, [...] ENDOSCOPY, COLON, SCREENING Routine 10/07/2012 8:19 AM AEROSPACE ENGINEER MAMMO BILAT SCREENING Routine 08/18/2012 12:28 PM AEROSPACE ENGINEER History of screening mammography COMPREHENSIVE METABOLIC PANEL Routine 08/13/2012 9:01 AM AEROSPACE ENGINEER Well adult exam Urinary, incontinence, stress female LIPID PROFILE Routine 08/13/2012 9:01 AM AEROSPACE ENGINEER Well adult exam Urinary, incontinence, stress female [...] AM CDT 06/20/2017 Narrative Resulting Agency Comment [facility] [address] [facility] [id number] us Eli Sanches MD LAB - CHEMISTRY ORDERABLES Final Result Performing Organization Address City/[facility]/[employer] de Phone Number [facility] ACCOUNT BILL [address] [place] [address] * ENDOSCOPY, COLON, SCREENING (10/07/2012 8:19 AM AEROSPACE ENGINEER) Narrative [facility] - 10/07/2012 8:19 AM AEROSPACE ENGINEER Procedure Note Peter Boles MD - 10/06/2012 1:20 PM CST Peter Boles MD GI PROCEDURE ORDERABLES Fin al Result Performing Organization Address [facility] de Phone Number [facility] [place] [address] * MAMMO SCREENING DIGITAL IMAGE BILAT (08/18/2012 12:28 PM AEROSPACE ENGINEER) Anatomical Region Laterality Modality Breast Bilateral Mammography 08/18/2012 1:36 PM AEROSPACE ENGINEER Narrative 08/18/2012 1:47 PM AEROSPACE ENGINEER DIGITAL BILATERAL SCREENING MAMMOGRAMS WITH CAD CORRELATION [...] if suspicious findings are present clinically. An [employer] Certified Facility. [facility] Breast Centers utilize [employer] as a reminder system to notify patients [...] if suspicious findings are present clinically. An [employer] Certified Facility. [facility] Breast Centers utilize [employer] as a reminder system to notify patients of their next recommended mammograms. Jeaneth Pond MD MAMMO ORDERABLES Final Re sult * (ABNORMAL) COMPREHENSIVE METABOLIC PANEL (08/13/2012 9:01 AM AEROSPACE ENGINEER) Glucose 96 65 - 99 mg/dL [facility] [...] BLOOD SPECIMEN / Unknown 08/13/2012 9:01 AM AEROSPACE ENGINEER 08/13/2012 10:53 PM AEROSPACE ENGINEER Narrative Resulting Agency Comment [facility] [id number] Jeaneth Pond MD LAB - CHEMISTRY ORDERABLE S Final Result [facility] ACCOUNT BILL [address] [place] [address] * (ABNORMAL) LIPID PROFILE (08/13/2012 9:01 AM AEROSPACE ENGINEER) Cholesterol 233(H) 100 - 199 mg/dL [facility] [...] BLOOD SPECIMEN / Unknown 08/13/2012 9:01 AM AEROSPACE ENGINEER 08/13/2012 10:53 PM AEROSPACE ENGINEER Narrative Resulting Agency Comment [facility] [id number] [facility] [id number] Jeaneth Pond MD LAB - CHEMISTRY ORDERABLE S Final Result [facility] ACCOUNT BILL [address] [place] [address] from Last 3 Months or Most Recently Relevant to Health Maintenance Insurance [facility] Care Teams Environmental Protection Forester Relationship Specialty [place] [id number] [place] [address] PCP - General Internal Medicine 06/20/17 [place] [id number] [address] [place] [id number] Rheumatology 06/20/17
--- OUTSIDE RECORDS SUMMARY | 2025-08-10 12:36 | XMS_ITS | Clinical Summary ---
Author Organization [facility] Building A Address [address] [place] [address] Care Team Providers Care Apparatus Engineering Technologist Name Role Phone Enoch Tavares MD Primary Care Provider [phone] Allergies No known active allergies Medications ketoconazole [...] CDT): History of bulging disc, consider adding tytn-uzl-bdpammc NSAID of choice. Use as directed on bottle. Herpes zoster without complication 02/07/2023 Assessment & Plan (02/07/2023 3:59 PM CDT): Prescription sent, may use tnym-dah-tqtnekb anti-itch cream and/or antihistamines as needed for itching. Bacteria in urine 02/07/2023 Assessment & Plan (02/07/2023 3:58 PM CDT): Urine culture ordered. Primary hypertension 10/19/2021 Assessment & Plan (05/22/2023 8:06 PM CDT): Blood pressure at goal less than 140/90, continue current prescription medications, amlodipine. Assessment & Plan (10/25/2022 10:22 AM MUD ENGINEER): Blood pressure at goal less than 140/90, d/c Maxzide. Continue amlodipine. Record daily bp measurements at home, send bp log in one week via in[employer]par[employer]. Assessment & Plan (10/11/2022 11:24 AM MUD ENGINEER): BP Readings from Last 3 Encounters: 10/11/22 [...] medications. Assessment & Plan (10/19/2021 8:20 AM MUD ENGINEER): Stable. Cont. Current prescription medications. Pure hypercholesterolemia 10/19/2021 Assessment & Plan (05/22/2023 8:07 PM CDT): LDL not at goal of < 100, low chol diet recommended. Consider a medication adjustment, once labs have been reviewed. Assessment & Plan (10/25/2022 10:22 AM MUD ENGINEER): LDL near goal of < 100, continue pravastatin. Low chol diet recommended, labs ordered. Assessment & Plan (04/23/2022 9:02 AM CDT): LDL not yet at goal of less than 100. Low-cholesterol diet recommended. Labs ordered, will follow. Assessment & Plan (10/19/2021 8:20 AM MUD ENGINEER): LDL not at goal of less than 100. Increase pravastatin 10 mg nightly up to 20 mg nightly. Low-cholesterol diet recommended. Gastroesophageal reflux disease without esophagi tis 10/19/2021 Assessment & Plan (04/23/2022 9:02 AM CDT): Stable. Cont. Current prescription medications. Assessment & Plan (10/19/2021 8:20 AM MUD ENGINEER): Asymptomatic. Stable. Continue current prescription medications. Tinnitus of both ears 10/19/2021 Bilateral hearing loss 04/10/2021 Assessment & Plan (04/10/2021 4:31 PM CDT): Hearing test and Balance testing - [facility] A Few Causes of Ringing in Your Ears (Tinnitus) discussed and Handout provided Hx of colonic polyps 05/23/2018 Overview (05/23/2018): Added automatically from request for surgery [id number] Family hx colonic polyps 05/23/2018 Overview (05/23/2018): Added automatically from request for surgery [id number] Body mass index (BMI) of 29.0 to [...] CDT): Hearing test and Balance testing - [facility] Acute cystitis with hematuria 03/31/2019 03/31/2019 [...] schedule next week upon returning back from [place] trip to look further into these abnormalities [...] week over the phone once returning from [place]. Left leg pain 03/18/2019 09/24/2019 Assessment & [...] on file Legal Sex Female 11:59 AM MUD ENGINEER Gender Identity Not on file Sexual [...] Read Routine (OP Routine) 11/14/2021 11:36 AM MUD ENGINEER Screening for osteoporosis Postmenopausal HEPATITIS C ANTIBODY Routine 11/14/2021 7:41 AM MUD ENGINEER Encounter for hepatitis C screening test for low risk patient COLONOSCOPY 08/11/2018 9:26 AM MUD ENGINEER from Last 3 Months or Most Recently [...] 1 or 2 Site (11/14/2021 11:36 AM MUD ENGINEER) Anatomical Region Laterality Modality Body N/A Other 11/14/2021 9:22 PM MUD ENGINEER Narrative 11/14/2021 9:24 PM MUD ENGINEER EXAM DESCRIPTION: DEXA AXIAL SKELETON BONE DENSITY 1 OR MORE SITES REASON FOR STUDY: 65 y/o year old F with given history of screening. Membership Solicitor/Model: [employer] (S/N [id number]) CLINICAL INFORMATION: Current height: 60 inches Maximum [...] Rusty Staton M.D. MF: [facility] Report ID: [id number] Reading Location: [place] [address] Procedure Note Rusty Staton MD - 11/14/2021 EXAM DESCRIPTION: DEXA AXIAL SKELETON BONE DENSITY 1 OR MORE SITES REASON FOR STUDY: 65 y/o year old F with given history ofscreening. Membership Solicitor/Model: [employer] (S/N [id number]) CLINICAL INFORMATION: Current height: 60 inches Maximum [...] Rusty Staton M.D. MF: [facility] Report ID: [id number] Reading Location: [place] [address] us Shahab Fitzpatrick DO IMG DXA PROCEDURES Final R esult * Hepatitis C antibody (11/14/2021 7:41 AM MUD ENGINEER) Pathologist [facility] Hep C Ab Nonreactive Nonreactive [facility] ([facility]) Comment: Interpretive Data Nonreactive: Antibodies to HCV [...] last revised on 2019. Testing performed by: [facility], [address] [place] [address], [place]., [address] Blood 11/14/2021 7:41 AM MUD ENGINEER 11/14/2021 2:40 PM MUD ENGINEER us Shhaab Fitzpatrick DO LAB MICROBIOLOGY - GENERAL ORDERABLES Final Result [facility] [address] [employer] [facility] [place] [address] * COLONOSCOPY (08/11/2018 9:26 AM MUD ENGINEER) Anatomical Region Laterality Modality Other Narrative Procedure Note Tien Bonner MD - 08/11/2018 9:26 AM CST [facility] Patient Name: Chiquita Shell Procedure Date: 08/11/2018 9:26 AM Date of : 1955 Admit Type: Outpatient Age: 62 Gender: Female Attending MD: Tien Bonner M.D. Room: [facility] Note Status: Finalized Procedure: Colonoscopy [...] scope was passed under direct vision.The Colonoscope [id number] was introducedthrough the anus and advanced to [...] history of colonic polyps CPT copyright 2017 [employer]. All rights reserved. The codes documented in this report are preliminary and upon audio/visual manager reviewmay be revised to meet current compliance requirements. 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
--- OUTSIDE RECORDS SUMMARY | 2025-08-10 12:37 | XMS_ITS | Encounter Summary ---
Author Organization [facility] Healthcare Address [address] [place] [address] Care Team Providers Care Recordist Name Role Phone Lucho Delvalle MD Primary Care Provider [phone] Karen Hough DO Primary Care Provider [phone] Lucho Delvalle MD Primary Care Provider [phone] Karen Hough DO Primary Care Provider [phone] Enoch Tavares MD Primary Care Provider [phone] Reason for Visit * Reason Onset Date Comments Scheduling Appointments 01/25/2021 Confirmi ng mammogram appt- no answer Encounter Details Date Type Department Care Team (Late st Contact Info) Description 01/25/2021 Telephone [facility] [address] [place] [id number] Joanie Campbell RT Scheduling Appointments (Confirming mammogram [...] on file 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 Gender Identity Not on file Sexual Orientation [...] documented as of this encounter Care Teams Recordist Relationship Specialty Start Date End Date Lucho Delvalle MD PCP - General 12/07/16 10/18/21 Karen Hough DO PCP - General Family Medicine 10/19/21 05/17/22 Lucho Delvalle MD [address] [facility] [facility] [address] [place] [id number] PCP - General 05/18/22 05/20/22 Karen Hough DO [address] [address] [place] [address] PCP - General 05/21/22 07/03/23 Enoch Tavares MD [address] [facility] [place] [address] PCP - General Family Practice 07/08/23 documented as of this encounter
[2025-08-10 18:52] LABS: Hematocrit 43.0 % (37.0-47.0); Hemoglobin 13.9 g/dL (12.0-15.0); Immature Granulocyte Percent A 0.4 % (0-0.5); Lymphocytes Absolute Auto 3.47 K/mm3 (0.9-3.2); Mean Corpuscular HGB Conc 32.3 g/dl (32-36); Mean Corpuscular Hemoglobin 31.4 pg (26-34); Mean Corpuscular Volume 97.1 fl (80-100); Nucleated Red Blood Cells Absolute Auto 0.000 K/mm3 (0.0-0.012); Nucleated Red Blood Cells Perc 0.0 % (0.0-0.2); Platelet Count Result 316 k/mm3 (150-375); Red Blood Count 4.43 M/mm3 (4.2-5.4); White Blood Count 8.3 K/mm3 (4.5-10.0)
[2025-08-10 19:25] LABS: Alanine Aminotransferase 30 U/L (6-35); Albumin Level 4.5 g/dL (3.5-5.1); Alkaline Phosphatase 64 U/L (38-126); Anion Gap 6 mmol/L (4-12); Aspartate Amino Transferase 67 U/L (14-36); Bilirubin,Total 0.4 mg/dL (0.2-1.3); Blood Urea Nitrogen 21 mg/dL (7-17); Calcium 9.7 mg/dL (8.4-10.2); Carbon Dioxide 30 mmol/L (22-30); Chloride 103 mmol/L (98-107); Estimated Glomerular Filt Rate > 60; Glucose 99 mg/dL (65-110); Potassium 4.3 mmol/L (3.4-5.0); Sodium 139 mmol/L (137-145); Total Protein 7.4 g/dL (6.3-8.2)
[2025-08-10 20:01] LABS: Thyroid Stimulating Hormone 0.790 uIU/mL (0.465-4.680)
[2025-08-10 20:20] LABS: Vitamin B12 999.0 pg/mL (239-931)
== END 2025-08-10 11:42 | disposition home or self-care (01) ==
PROVIDERS: PCP Family Medicine; Visit Provider Family Medicine
DX: M54.50 Low back pain, unspecified (principal); I25.10 Atherosclerotic heart disease of native coronary artery without angina pectoris; E78.5 Hyperlipidemia, unspecified; G25.81 Restless legs syndrome; Z00.00 Encounter for general adult medical examination without abnormal findings; R00.2 Palpitations; E55.9 Vitamin D deficiency, unspecified
CPT/HCPCS: 36415; 80053; 82306; 82607; 84443; 85025